=== PATIENT | female | born 1965 | race Caucasian/White ===

== ENCOUNTER 2016-08-28 17:43 | Emergency (ER) | payer OTHER ==
[2016-08-28 17:57] VITALS: BP 150/70
--- NOTE | 2016-08-28 18:06 | UC ---
Throat Pain/Nasal Bayron HPI - HPI Summary HPI Summary: cmoplaint of sore throat that started this morning nasal congestion and sinus pressure for several days intermittent headache denies cough, ear pain denies fever or chills taking claritin, dimetapp without relief - History of Current Complaint Chief Complaint: UCGeneralIllness Stated Complaint: CONGESTION, SORE THROAT Time Seen by Provider: 08/28/16 17:50 Hx Obtained From: Patient Hx Last Menstrual Period: 3-4 weeks ago - Allergies/Home Medications Allergies/Adverse Reactions: Allergies Allergy/AdvReac Type Severity Reaction Status Date / Time Cefaclor [From Ceclor] Allergy Severe Rash Verified 08/28/16 17:57 Penicillins Allergy Severe Rash Verified 08/28/16 17:57 Cefuroxime [From Ceftin] Allergy Intermediate Rash Verified 08/28/16 17:57 Milk-related Compounds Allergy Intermediate cramps Verified 08/28/16 17:57 dairy Allergy GI Upset Uncoded 08/28/16 17:57 peanuts Allergy Difficulty Uncoded 08/28/16 17:57 Breathing/Wheezing Home Medications: Home Medications Loratadine [Claritin] 10 mg PO DAILY 08/28/16 [History Confirmed 08/28/16] PMH/Surg Hx/FS Hx/Imm Hx Previously Healthy: Yes Endocrine History Of: Reports: Thyroid Disease - hypothyroid, Hypothyroidism Denies: Diabetes Cardiovascular History Of: Reports: Hypertension Denies: Cardiac Disorders, Pacemaker/ICD Respiratory History Of: Reports: Asthma Denies: COPD GI/ History Of: Reports: Kidney Stones Denies: Ulcer, Renal Disease Psychological History Of: Reports: Depression Cancer History Of: Denies: Breast Cancer - Surgical History Surgical History: Yes Surgery Procedure, Year, and Place: d&c -2005. uterine ablasion-2008. C- sections 1989 & 2001. D&C 05/12/13 - Family History Known Family History: Positive: Unknown, Hypertension, Diabetes, Other - Colon Cancer Negative: Cardiac Disease - Social History Occupation: Employed Full-time Lives: With Family Alcohol Use: None Substance Use Type: None Smoking Status (MU): Never Smoked Tobacco Have You Smoked in the Last Year: No - Immunization History Most Recent Tetanus Shot: >10 years Review of Systems Constitutional: Negative Skin: Negative Eyes: Negative ENT: Sore Throat, Nasal Discharge Respiratory: Negative Cardiovascular: Negative Gastrointestinal: Negative Genitourinary: Negative Motor: Negative Neurovascular: Negative Musculoskeletal: Negative Neurological: Negative Psychological: Negative All Other Systems Reviewed And Are Negative: Yes Physical Exam Triage Information Reviewed: Yes Appearance: No Pain Distress, Obese Vital Signs: Initial Vital Signs Temp 96.6 F 08/28/16 17:47 Pulse 72 08/28/16 17:47 Resp 16 08/28/16 17:47 BP 150/70 08/28/16 17:47 Pulse Ox 100 08/28/16 17:47 Vital Signs Reviewed: Yes Eyes: Positive: Conjunctiva Clear ENT: Positive: Pharyngeal erythema, Nasal congestion, TMs normal, Tonsillar swelling. Negative: Tonsillar exudate Neck: Positive: No Lymphadenopathy Respiratory: Positive: Lungs clear, Normal breath sounds, No respiratory distress Cardiovascular: Positive: RRR, No Murmur Abdomen Description: Positive: Nontender, Soft Bowel Sounds: Positive: Present Musculoskeletal: Positive: No Edema Neurological: Positive: Alert Psychological Exam: Normal Skin Exam: Normal Throat Pain/Nasal Course/Dx - Differential Dx/Diagnosis Differential Diagnosis/HQI/PQRI: Pharyngitis, Sinusitis, URI Provider Diagnoses: URI, pharyngitis Discharge - Discharge Plan Condition: Stable Disposition: HOME Patient Education Materials: Upper Respiratory Infection (ED), Pharyngitis (ED) Referrals: Jamari Roman MD [Primary Care Provider] - Additional Instructions: Please review your discharge instructions. If your symptoms do not improve please call your primary care provider or return to urgent care. PHARYNGITIS (Sore Throat) What is Pharyngitis? The medical name for a sore throat is Pharyngitis. It is caused by an infection or irritation of your throat or tonsils. The infection can be caused by a virus or by bacteria. Not everyone with Pharyngitis needs antibiotics. Antibiotics will not make viral infections better, and they will not help a sore throat caused by irritation. Symptoms May Include: Sore throat Swelling of the glands in the neck Trouble or pain with swallowing Fever Headache Cough Extreme tiredness Ear pain Treatment Recommendations: Gargle every few hours with a solution of 1/4 teaspoon of salt dissolved in 1/ 2 cup of warm water. Drink plenty of warm beverages, like tea with lemon, (with or without honey) and soup. You may eat and drink cold foods and liquids like frozen yogurt, popsicles, and ice water if that makes your throat feel better. The goal is to keep you well hydrated. Use a "cool-mist" vaporizer or humidifier in the room where you spend most of your time. If you get a sore throat often, consider adding an electronic air filter and humidifier to your furnace system. Don't smoke. Do not eat spicy foods. Take medicine exactly as prescribed. If you do not think it is helping, call your healthcare provider. Do not increase how much or how often you take it without getting their OK first. Non-prescription anti-inflammatory medicine like ibuprofen (Motrin, Advil) or naproxen (Aleve) may help lessen the pain. You should not take these medicines if you have had bleeding in your stomach in the past. Acetaminophen ( Tylenol) is another choice of medicine that may help the pain. If pain medicine that makes you tired or sleepy or contains narcotics is prescribed, you should not drink, drive, or participate in any other activities that you need to be clear-headed for. Please keep all medicines out of the reach of children. Do not get in close contact with anyone you know who has a sore throat. Use throat lozenges (Cepostat, Marathon, etc.) or suck on hard candy for temporary relief of the pain with swallowing. (Do not give to children under age 5.) Call Your Doctor or Return Here IF: Your symptoms do not start to get better within 2 days or you become worse. You have a fever over 101.0 F orally. You cant swallow liquids or saliva. You are drooling. You start to have trouble breathing. You start to have a rash. You start to have a stiff neck. You start to have pain in your chest. You start to have any symptoms that are new or worry you.
== END 2016-08-28 18:22 | disposition home or self-care (01) ==
LOC: UCEAST 17:43
DX: J06.9 Acute upper respiratory infection, unspecified (principal); J02.9 Acute pharyngitis, unspecified; Z88.1 Allergy status to other antibiotic agents; Z88.0 Allergy status to penicillin
CPT/HCPCS: 87651; 99211; G0463

== ENCOUNTER 2017-05-22 08:59 | Emergency (ER) | payer MEDICAID, OTHER ==
[2017-05-22] MEDS ORDERED: Aspirin Low Dose CHEW TAB* 81 MG PO ONE (09:02)
[2017-05-22 09:18] LABS: Hematocrit 41 % (35-47); Hemoglobin 13.3 g/dl (12.0-16.0); Mean Corpuscular HGB Conc 33 g/dl (31-36); Mean Corpuscular Hemoglobin 25 pg (27-31); Mean Corpuscular Volume 77 fL (80-97); Mean Platelet Volume 8 um3 (7.4-10.4); Red Blood Count 5.24 10^6/ul (4.0-5.4); Red Cell Distribution Width 16 % (10.5-15); White Blood Count 10.2 10^3/ul (3.5-10.8)
[2017-05-22 09:32] LABS: ALT 12 U/L (7-52); AST 13 U/L (13-39); Albumin 3.8 g/dL (3.2-5.2); Alkaline Phosphatase 78 U/L (34-104); Anion Gap 8 mmol/L (2-11); BUN/Creatinine Ratio 15.2 (8-20); Blood Urea Nitrogen 10 mg/dL (6-24); CO2 Carbon Dioxide 25 mmol/L (22-32); Calcium 8.9 mg/dL (8.6-10.3); Chloride 102 mmol/L (101-111); Creatine Kinase 64 U/L (10-223); EGFR African American 122.4 (>60); EGFR Non-African American 95.2 (>60); Globulin 2.9 g/dL (2-4); Glucose 139 mg/dL (70-100); Magnesium 1.8 mg/dL (1.9-2.7); Potassium 3.8 mmol/L (3.5-5.0); Sodium 135 mmol/L (133-145); Total Protein 6.7 g/dL (6.4-8.9)
--- NOTE | 2017-05-22 09:44 | RAD ---
HISTORY: Chest pain COMPARISONS: August 12, 2012 VIEWS: 1: frontal portable view of the chest at 9:22 AM FINDINGS: LINES AND TUBES: None. CARDIOMEDIASTINAL SILHOUETTE: The cardiomediastinal silhouette is the upper limits of normal for portable technique. PLEURA: The costophrenic angles are sharp. No pleural abnormalities are noted. LUNG PARENCHYMA: The lungs are clear. ABDOMEN: The upper abdomen is clear. There is no subphrenic gas. BONES AND SOFT TISSUES: No bone or soft tissue abnormalities are noted. IMPRESSION: THE CARDIAC SILHOUETTE IS AT THE UPPER LIMITS OF NORMAL IN SIZE FOR PORTABLE TECHNIQUE.
[2017-05-22 10:19] LABS: TSH (Thyroid Stimulating Horm) 3.74 mcIU/mL (0.34-5.60)
[2017-05-22] MEDS ORDERED: Magnesium Oxide TAB* 400 MG PO ONE (11:19)
[2017-05-22 11:32] LABS: Urine Bacteria 1+ (Absent); Urine Bilirubin Negative (Negative); Urine Glucose Negative (Negative); Urine Nitrite Negative (Negative)
[2017-05-22 12:06] VITALS: BP 106/39
--- NOTE | 2017-05-23 08:09 | ED ---
Brianna Miranda Alfonso, scribed for Andre Barron MD on 05/22/17 at 0937 . HPI Chest Pain - HPI Summary HPI Summary: This patient is a 51 year old F BIBA to [facility] accompanied by female with a chief complaint of diffuse CP since 729 today. The CP radiates to her left arm (numbness). The patient rates the pain 1/10 in severity. Symptoms aggravated by nothing. Symptoms alleviated by nothing. Patient reports palpitations, anxiety, tachypnea, nausea, diaphoresis (hands and back of hands), and SOB. Patient denies vomiting. - History of Current Complaint Chief Complaint: EDChestPainROMI Time Seen by Provider: 05/22/17 09:01 Hx Obtained From: Patient Onset/Duration: Started Hours Ago - 729 today, Still Present Timing: Constant Current Severity: Mild Pain Intensity: 1 Pain Scale Used: 0-10 Numeric Chest Pain Location: Diffuse Chest Pain Radiates: Yes Chest Pain Radiates To:: Arm - left Aggravating Factor(s): Nothing Alleviating Factor(s): Nothing Associated Signs and Symptoms: Positive: Other: - Patient reports palpitations, anxiety, tachypnea, nausea, diaphoresis (hands and back of hands), and SOB. Patient denies vomiting. - Allergy/Home Medications Allergies/Adverse Reactions: Allergies Allergy/AdvReac Type Severity Reaction Status Date / Time Cefaclor [From Ceclor] Allergy Severe Rash Verified 05/22/17 09:39 Penicillins Allergy Severe Rash Verified 05/22/17 09:39 Cefuroxime [From Ceftin] Allergy Intermediate Rash Verified 05/22/17 09:39 Milk-related Compounds Allergy Intermediate cramps Verified 05/22/17 09:39 dairy Allergy GI Upset Uncoded 05/22/17 09:39 peanuts Allergy Difficulty Uncoded 05/22/17 09:39 Breathing/Wheezing PMH/Surg Hx/FS Hx/Imm Hx Endocrine/Hematology History: Reports: Hx Thyroid Disease - hypothyroid Denies: Hx Diabetes Cardiovascular History: Reports: Hx Hypercholesterolemia, Hx Hypertension Denies: Hx Pacemaker/ICD Respiratory History: Reports: Hx Asthma Denies: Hx Chronic Obstructive Pulmonary Disease (COPD) GI History: Denies: Hx Ulcer History: Reports: Hx Kidney Stones Denies: Hx Renal Disease Sensory History: Reports: Hx Contacts or Glasses Denies: Hx Hearing Aid Opthamlomology History: Reports: Hx Contacts or Glasses Psychiatric History: Reports: Hx Depression, Hx Panic Disorder - ANXIETY - Cancer History Hx Chemotherapy: No Hx Radiation Therapy: No - Surgical History Surgery Procedure, Year, and Place: d&c -2005. uterine ablasion-2008. C- sections 1989 & 2001. D&C 05/12/13 Infectious Disease History: No Infectious Disease History: Denies: Hx Clostridium Difficile, Hx Hepatitis, Hx Human Immunodeficiency Virus (HIV), Hx of Known/Suspected MRSA, Hx Shingles, Hx Tuberculosis, Hx Known/ Suspected VRE, Hx Known/Suspected VRSA, History Other Infectious Disease, Traveled Outside the [place] in Last 30 Days - Family History Known Family History: Positive: Hypertension, Diabetes, Other - Colon Cancer Negative: Cardiac Disease - Social History Alcohol Use: None Substance Use Type: Reports: None Hx Tobacco Use: No Smoking Status (MU): Never Smoked Tobacco Have You Smoked in the Last Year: No Review of Systems Positive: Skin Diaphoresis Positive: Palpitations, Chest Pain Positive: Shortness Of Breath, Other - tachypnea Positive: Nausea. Negative: Vomiting Positive: Anxious All Other Systems Reviewed And Are Negative: Yes Physical Exam - Summary Physical Exam Summary: VITAL SIGNS: Reviewed. GENERAL: Patient is a well-developed and obese female who is lying comfortable in the stretcher. Patient is not in any acute respiratory distress. HEAD AND FACE: No signs of trauma. No ecchymosis, hematomas or skull depressions. No sinus tenderness. EYES: PERRLA, EOMI x 2, No injected conjunctiva, no nystagmus. EARS: Hearing grossly intact. Ear canals and tympanic membranes are within normal limits. MOUTH: Oropharynx within normal limits. NECK: Supple, trachea is midline, no adenopathy, no JVD, no carotid bruit, no c- spine tenderness, neck with full ROM. CHEST: Symmetric, no tenderness at palpation LUNGS: Clear to auscultation bilaterally. No wheezing or crackles. CVS: Regular rate and rhythm, S1 and S2 present, no murmurs or gallops appreciated. ABDOMEN: Soft, non-tender. No signs of distention. No rebound no guarding, and no masses palpated. Bowel sounds are normal. EXTREMITIES: FROM in all major joints, no edema, no cyanosis or clubbing. NEURO: Alert and oriented x 3. No acute neurological deficits. Speech is normal and follows commands. SKIN: Dry and warm Triage Information Reviewed: Yes Vital Signs On Initial Exam: Initial Vitals Temp Pulse Resp BP Pulse Ox 97.7 F 70 16 133/58 97 05/22/17 09:10 05/22/17 09:10 05/22/17 09:10 05/22/17 09:10 05/22/17 09:10 Vital Signs Reviewed: Yes Diagnostics - Vital Signs Vital Signs Temp Pulse Resp BP Pulse Ox 05/22/17 09:10 97.7 F 70 16 133/58 97 - Laboratory Lab Results: Lab Results 05/22/17 05/22/17 05/22/17 Range/Units 09:09 09:09 09:09 WBC 10.2 (3.5-10.8) 10^3/ul RBC 5.24 (4.0-5.4) 10^6/ul Hgb 13.3 (12.0-16.0) g/dl Hct 41 (35-47) % MCV 77 L (80-97) fL MCH 25 L (27-31) pg MCHC 33 (31-36) g/dl RDW 16 H (10.5-15) % Plt Count 241 (150-450) 10^3/ul MPV 8 (7.4-10.4) um3 Neut % (Auto) 70.0 (38-83) % Lymph % (Auto) 21.3 L (25-47) % [place] % (Auto) 6.3 (1-9) % Eos % (Auto) 1.3 (0-6) % Baso % (Auto) 1.1 (0-2) % Absolute Neuts (auto) 7.1 (1.5-7.7) 10^3/ul Absolute Lymphs (auto) 2.2 (1.0-4.8) 10^3/ul Absolute Monos (auto) 0.6 (0-0.8) 10^3/ul Absolute Eos (auto) 0.1 (0-0.6) 10^3/ul Absolute Basos (auto) 0.1 (0-0.2) 10^3/ul Absolute Nucleated RBC 0.01 10^3/ul Nucleated RBC % 0.1 Sodium 135 (133-145) mmol/L Potassium 3.8 (3.5-5.0) mmol/L Chloride 102 (101-111) mmol/L Carbon Dioxide 25 (22-32) mmol/L Anion Gap 8 (2-11) mmol/L BUN 10 (6-24) mg/dL Creatinine 0.66 (0.51-0.95) mg/dL Est GFR ( Amer) 122.4 (>60) Est GFR (Non-Af Amer) 95.2 (>60) BUN/Creatinine Ratio 15.2 (8-20) Glucose 139 H (70-100) mg/dL Lactic Acid 2.1 H* (0.5-2.0) mmol/L Calcium 8.9 (8.6-10.3) mg/dL Magnesium 1.8 L (1.9-2.7) mg/dL Total Bilirubin 0.40 (0.2-1.0) mg/dL AST 13 (13-39) U/L ALT 12 (7-52) U/L Alkaline Phosphatase 78 (34-104) U/L Total Creatine Kinase 64 (10-223) U/L CK-MB (CK-2) Pending Troponin I Pending Total Protein 6.7 (6.4-8.9) g/dL Albumin 3.8 (3.2-5.2) g/dL Globulin 2.9 (2-4) g/dL Albumin/Globulin Ratio 1.3 (1-3) TSH Pending Beta HCG, Quant Pending Result Diagrams: 05/22/17 09:09 05/22/17 09:09 Lab Statement: Any lab studies that have been ordered have been reviewed, and results considered in the medical decision making process. - Radiology CXR Radiology Interpretation Completed By: Radiologist - THE CARDIAC SILHOUETTE IS AT THE UPPER LIMITS OF NORMAL IN SIZE FOR PORTABLE TECHNIQUE. ED physician has reviewed this radiology report and agrees. - EKG 916 Cardiac Rate: NL - BPM 67 EKG Rhythm: Sinus Rhythm EKG Interpretation: No ST elevation Chest Pain Course/Dx - Course Assessment/Plan: This patient is a 51 year old F BIBA to [facility] accompanied by female with a chief complaint of diffuse CP since 0730 today. The CP radiates to her left arm (numbness). The patient rates the pain 1/10 in severity. Symptoms aggravated by nothing. Symptoms alleviated by nothing. Patient reports palpitations, anxiety, tachypnea, nausea, diaphoresis (hands and back of hands) , and SOB. Patient denies vomiting. Test results with no significant abnormalities except for glucose of 139, lactic acid of 2.1, and magnesium of 1.8. First troponin 0.00 and second troponin 4 hours later is also 0.00. Urinalysis contaminated therefore cultures will be sent. An EKG reveals NSR. CXR reveals THE CARDIAC SILHOUETTE IS AT THE UPPER LIMITS OF NORMAL IN SIZE FOR PORTABLE TECHNIQUE. ED physician has reviewed this radiology report and agrees. Therefore I believe the patient has musculoskeletal pain. I do not believe the patient has CAD. The patient is not hypoxic or tachycardic therefore I have low suspicion for PE. The patient is hemodynamically stable and alert and oriented x3. - Chest Pain Differential Diagnosis/HQI/PQRI: Acute VA, ACS, Angina, CHF, Chest Wall, GI Disease, Lower Respiratory Infection - Diagnoses Provider Diagnoses: Chest pain, atypical Discharge - Discharge Plan Condition: Stable Disposition: HOME Patient Education Materials: Chest Pain (ED) Referrals: Jamari Roman MD [Primary Care Provider] - 3 Days Additional Instructions: RETURN TO THE EMERGENCY DEPARTMENT FOR CHANGING OR WORSENING SYMPTOMS. The documentation as recorded by the Brianna munroe Alfonso accurately reflects the service I personally performed and the decisions made by , Andre Barron MD.
--- NOTE | 2017-05-24 09:18 | PN ---
Progress Note - Progress Note Date of Service: 05/22/17 Note: preliminary urine culture results grew 10-25,000 group B. not complaining of symptoms and not sufficient enough for any treatment. no further action required at this time.
== END 2017-05-22 13:08 | disposition home or self-care (01) ==
LOC: ED 08:59
DX: R07.89 Other chest pain (principal); R00.2 Palpitations; R06.02 Shortness of breath; R11.0 Nausea; F41.9 Anxiety disorder, unspecified
CPT/HCPCS: 36415; 71010; 80053; 81003; 81015; 82550; 82553; 83605; 83735; 84443; 84484; 84702; 85025; 87077; 87086; 93005; 99282

== ENCOUNTER 2017-09-16 11:46 | Emergency (ER) | payer OTHER ==
[2017-09-16 13:09] VITALS: BP 150/77
--- NOTE | 2017-09-16 13:37 | UC ---
Allergic Reaction HPI - HPI Summary HPI Summary: Pt presents with recent history of swelling to face and lips. She tells me that her daughter is autistic and will occasionally make food for her to eat for fun. Mom tried a hamburger with A1 sauce, BBQ sauce, and cottage cheese - about 15-20 minutes later she developed facial swelling and a red rash on her face. She took two benadryl and came to urgent care. She has had all these food items in the past without difficulty and is unsure what caused this reaction. At the time of this interview, she tells me that swelling and rash are almost completely gone. Denies headache, dizziness, SOB, throat swelling, palpitations , or chest pain. - History of Current Complaint Chief Complaint: UCRasjob Stated Complaint: ALLERGIC REACTION RASH Time Seen by Provider: 09/16/17 13:32 Hx Obtained From: Patient Hx Last Menstrual Period: 08/21/17 Onset/Duration: Sudden Onset Severity Initially: Mild Severity Currently: Mild Pain Intensity: 2 Pain Scale Used: 0-10 Numeric Character: Swelling - Allergies/Home Medications Allergies/Adverse Reactions: Allergies Allergy/AdvReac Type Severity Reaction Status Date / Time MS Cefaclor [From Ceclor] Allergy Severe Rash Verified 05/22/17 09:39 MS Penicillins [Penicillins] Allergy Severe Rash Verified 05/22/17 09:39 MS Cefuroxime [From Ceftin] Allergy Intermediate Rash Verified 05/22/17 09:39 MS Milk-related Compounds Allergy Intermediate cramps Verified 05/22/17 09:39 [Milk-related Compounds] peanuts Allergy Severe Difficulty Uncoded 09/16/17 13:10 Breathing/Wheezing dairy Allergy GI Upset Uncoded 05/22/17 09:39 Home Medications: Home Medications Multivitamin [Multiple Vitamins] 1 tab PO DAILY 09/16/17 [History Confirmed 01/26] diphenhydrAMINE HCl [Benadryl Allergy 25 MG CAP] 50 mg PO DAILY PRN 09/16/17 [ History Confirmed 09/16/17] PMH/Surg Hx/FS Hx/Imm Hx Previously Healthy: Yes Endocrine History: Hypothyroidism Psychological History: Anxiety, Depression - Surgical History Surgical History: Yes Surgery Procedure, Year, and Place: d&c -2005. uterine ablasion-2008. C- sections 1989 & 2001. D&C 05/12/13 - Family History Known Family History: Positive: Unknown, Hypertension, Diabetes, Other - Colon Cancer Negative: Cardiac Disease - Social History Occupation: Employed Full-time Lives: With Family Alcohol Use: None Substance Use Type: None Smoking Status (MU): Never Smoked Tobacco Have You Smoked in the Last Year: No - Immunization History Most Recent Tetanus Shot: >10 years Review of Systems Constitutional: Negative Skin: Rash, Other - Facial swelling Eyes: Negative ENT: Negative Respiratory: Negative Cardiovascular: Negative Gastrointestinal: Negative Neurovascular: Negative Musculoskeletal: Negative Neurological: Negative Psychological: Negative All Other Systems Reviewed And Are Negative: Yes Physical Exam Triage Information Reviewed: Yes Appearance: Well-Appearing, No Pain Distress, Obese, Other: - Sitting on exam table. NAD. breathing comfortably Vital Signs: Initial Vital Signs Temp 98.1 F 09/16/17 13:04 Pulse 84 09/16/17 13:04 Resp 20 09/16/17 13:04 BP 150/77 09/16/17 13:04 Pulse Ox 99 09/16/17 13:04 Vital Signs Reviewed: Yes Eyes: Positive: Conjunctiva Clear, Other: - EOMI. PERRLA. No lid swelling or perioribital edema. Negative: Conjunctiva Inflamed, Discharge ENT: Positive: Hearing grossly normal, Pharynx normal, TMs normal, Uvula midline , Other - No neck or throat edema.. Negative: Pharyngeal erythema, Nasal congestion, Nasal drainage, TM bulging, TM dull, TM red, Tonsillar swelling, Tonsillar exudate, Muffled voice, Hoarse voice, Sinus tenderness Neck: Positive: Supple, Nontender, No Lymphadenopathy, Other: - FROM. No edema Respiratory: Positive: Chest non-tender, Lungs clear, Normal breath sounds, No respiratory distress, No accessory muscle use Cardiovascular: Positive: RRR, No Murmur, Pulses Normal, Brisk Capillary Refill Neurological: Positive: Alert, Other: - CN II-XII grossly intact Psychological: Positive: Age Appropriate Behavior Skin: Positive: Other - No appreciable edema or rashes on face.. Negative: rashes, significant lesion(s) Allergic Reaction Course/Dx - Course Course Of Treatment: Allergic reaction to food item - resolved. Will place her on prednisone for 5 days to insure reaction resolution. Report to ED if symptoms return. - Differential Dx/Diagnosis Provider Diagnoses: Allergic reaction to food item. Discharge - Discharge Plan Condition: Stable Disposition: HOME Prescriptions: predniSONE TAB* [Deltasone TAB*] 40 mg PO DAILY #10 tab Patient Education Materials: General Allergic Reaction (ED) Referrals: Jamari Roman MD [Primary Care Provider] - Additional Instructions: If you develop a fever, shortness of breath, chest pain, new or worsening symptoms - please call your PCP or go to the ED. Your blood pressure was high at todays visit. Please see your primary provider within 4 weeks for recheck and re-evaluation. 1) If your symptoms return or if you develop any fever, swelling, shortness of breath, or chest pain - please call 911 and go to the ER.
== END 2017-09-16 14:23 | disposition home or self-care (01) ==
LOC: UCEAST 11:46
DX: T78.1XXA Other adverse food reactions, not elsewhere classified, initial encounter (principal); L27.2 Dermatitis due to ingested food; R22.0 Localized swelling, mass and lump, head; E03.9 Hypothyroidism, unspecified; F41.9 Anxiety disorder, unspecified; F32.9 Major depressive disorder, single episode, unspecified; E66.9 Obesity, unspecified; Z88.0 Allergy status to penicillin; Z88.1 Allergy status to other antibiotic agents; Z91.011 Allergy to milk products; Z91.010 Allergy to peanuts
CPT/HCPCS: 99212; G0463

== ENCOUNTER 2017-10-08 11:46 | Emergency (ER) | payer OTHER ==
--- OUTSIDE RECORDS SUMMARY | 2017-10-08 11:53 | XMS REPORT ---
:1965 Author Organization [facility] OBN Address [address] [place] [address] Care Team Providers Name Role Phone Caty Diehl Unavailable Unavailable PROBLEMS Type Condition ICD9-CM Code [id number] Code Onset Condition SNOMED Code Dates Status Problem Morbid (severe) E66.01 Active 041819819 obesity due to excess calories Problem Elevated R03.0 Active 607942739 blood-pressure reading, without diagnosis of hypertension Problem Leiomyoma of D25.9 Active [id number] uterus, unspecified Problem Irregular N92.6 Active 25684713 menstruation, unspecified Problem Family history of Z80.0 Active [id number] malignant neoplasm of digestive organs ALLERGIES Substance Reaction Event Type Date Status Dairy hives Drug Allergy Sep, Active penicillin hives Drug Allergy Sep, Active Ceclor hives Drug Allergy Sep, Active Ceftin hives Drug Allergy Sep, Active ENCOUNTERS Encounter Location Date Diagnosis [facility] [address] December, [place] [id number] [facility] [address] December, [place] [id number] [address] Oct, [address] [place], [place] [id number] [address] Sep, Encounter for gynecological [facility] [address] [facility] (general) [place] [id number] (routine) with abnormal findings Z01.411 ; Leiomyoma of uterus, unspecified D25.9 ; Irregular menstruation, unspecified N92.6 ; Encounter for other screening for malignant neoplasm of breast Z12.39 ; Morbid (severe) obesity due to excess calories E66.01 and Elevated blood-pressure reading, without diagnosis of hypertension R03.[address] Jul, Leiomyoma of uterus, [address] [place], unspecified D25.9 and [place] [id number] Irregular menstruation, unspecified N92.6 [facility] 103 Jul, Leiomyoma of uterus, [facility] unspecified D25.9 and [place], [place] [id number] Irregular menstruation, unspecified N92.6 [facility] [facility] 103 Jan, OBGYN [facility] [place] [id number] [facility] [facility] 103 Jan, Excessive and frequent [facility] with regular [place], [place] [id number] cycle N92.0 ; Irregular menstruation, unspecified N92.6 and Leiomyoma of uterus, unspecified D25.9 [facility] 103 Jan, Excessive and frequent OBGYN [facility] menstruation with regular [place], [place] [id number] cycle N92.0 ; Irregular menstruation, unspecified N92.6 and Leiomyoma of uterus, unspecified D25.[address] December, Irregular menstruation , O[address] [place] [address], unspecified N92.6 [place] [id number] [address] Sep, Encounter for gynecological [facility] Road [address] [place] [address], examination (general) [place] [id number] (routine) without abnormal findings Z01.419 ; Encounter for screening mammogram for malignant neoplasm of breast Z12.31 ; Body mass index (BMI) 45.0-49.9, adult Z68.42 and Family history of malignant neoplasm of digestive organs Z80.[address] May, OBN [address] [place] [id number] May, Encounter for gynecological [facility] Road [address] [place] [address], examination (general) [place] [id number] (routine) without abnormal findings Z01.419 ; Encounter for screening mammogram for malignant neoplasm of breast Z12.31 ; Leiomyoma of uterus, unspecified D25.9 and Body mass index (BMI) 45.0-49.9, adult Z68.42 [facility] [address] [facility] 09 May, 2015 Encounter for screening [address] [place], mammogram for malignant [place] [id number] neoplasm of breast Z12.31 ; Excessive and frequent menstruation with regular cycle N92.0 ; Leiomyoma of uterus, unspecified D25.9 ; Body mass index (BMI) 45.0-49.9, adult Z68.42 and Encounter for gynecological examination (general) (routine) with abnormal findings Z01.411 [facility] [facility] 103 Feb, FM HX OVARY MALIGNANCY OBGYN [facility] V16.41 ; FM HX GENITAL [place], [place] [id number] MALIG NEC V16.49 ; Menometrorrhagia 626.2 and VULVAR LESION 624.9 [place] [facility] 103 Feb, [facility] FIB[facility]IDS- U[facility]PEC [facility] 218.9 [place], [place] [id number] [facility] Feb, OBGYN [place] [id number] [facility] [address] [facility] Feb, [address] [place] [id number] [place] [facility] 103 Feb, OBGYN [place] [id number] [facility] [address] [place] [facility] Jan, VULVAR LESION [address] [place], [place] [id number] [place] [facility] 103 Jan, FM HX OVARY MALIGNANCY OBN [facility] V16.41 ; FM HX GENITAL [place], [place] [id number] MALIG NEC V16.49 ; Menometrorrhagia 626.2 and VULVAR LESION 624.9 [facility] [facility] 103 Jan, FM HX OVARY MALIGNANCY OBGYN [facility] V16.41 ; FM HX GENITAL [place], [place] [id number] MALIG NEC V16.49 and Menometrorrhagia 626.2 [facility] [facility] 103 Jan, FM HX OVARY MALIGNANCY [facility] V16.41 ; FM HX GENITAL [place], [place] [id number] MALIG NEC V16.49 and Menometrorrhagia 626.[address] Nov, ROUTINE KAIAKO KOHANGA REO EXAMINATION [facility] Road [address] [place] [address], V72.31 and PAP SMEAR W/O [place] [id number] KAIAKO KOHANGA REO EXAM V76.2 [facility] 103 Sep, [place] [id number] [address] Sep, Menorrhagia 626.2 ; OBGYN [address] [place] [address], Endometrial polyp 621.0 ; [place] [id number] FM HX OVARY MALIGNANCY V16.41 ; FM HX GENITAL MALIG NEC V16.49 and SCREEN MAMMOGRAM NEC V76.[address] Sep, OBGYN [address] [place] [id number] Jun, Menorrhagia 626.2 ; OBGYN [address] [place] [address], Endometrial polyp 621.0 ; [place] [id number] FM HX OVARY MALIGNANCY V16.41 ; FM HX GENITAL MALIG NEC V16.49 and Body Mass Index 45.0-49.9, adult V85.42 [facility] [address] [place], May, Medical [place] [id number] [address] May, Menorrhagia 626.2 ; [address]BGYN [address] [place] [address], Endometrial polyp 621.0 ; [place] [id number] FM HX OVARY MALIGNANCY V16.41 and FM HX GENITAL MALIG NEC V16.49 [facility] 103 Mar, [place] [id number] [address] Mar, Menorrhagia 626.2 ; OBGYN [address] [place], Endometrial polyp 621.0 ; [place] [id number] FM HX OVARY MALIGNANCY V16.41 and FM HX GENITAL MALIG NEC V16.[address] Mar, OBGYN [address] [place], [place] [id number] [facility] [facility] 103 December, [place] [id number] [facility] [facility] 103 Nov, [place] [id number] [place] [facility] [address] [place] [address] [facility] Nov, Menorrhagia 626.2 ; [address] [place], Endometrial polyp 621.0 ; [place] [id number] FM HX OVARY MALIGNANCY V16.41 and FM HX GENITAL MALIG NEC V16.49 [facility] [facility] 103 Nov, [place] [id number] [facility] [facility] 103 Nov, [place] [id number] [facility] [facility] 103 Nov, [place] [id number] [place] [facility] [address] [place] [address] [facility] Nov, Menorrhagia [address] [place] [id number] [facility] [facility] 103 Nov, Menorrhagia 626.2 [place] [id number] [facility] 103 Nov, Menorrhagia 626.2 ; FM HX [facility] OVARY MALIGNANCY V16.41 and [place], [place] [id number] Endometrial polyp 621.0 [facility] [facility] 103 Jun, [place], [place] [id number] [facility] [address] [place] [address] Tri[facility]amm Jun, UTERINE FIBROIDS- UNSPEC OBGYN [address] [place], 218.9 ; FM HX OVARY [place] [id number] MALIGNANCY V16.41 ; FM HX GENITAL MALIG NOS V16.40 and Menorrhagia 626.2 [facility] [facility] 103 Jun, [place], [place] [id number] [facility] [facility] 103 Jun, OBGYN [place] [id number] [facility] 103 Jun, OBGYN [place] [id number] [facility] [facility] 103 Jun, OBGYN [place] [id number] [place] [facility] 103 May, UTERINE FIBROIDS- UNSPEC OBGYN [facility] 218.9 ; FM HX OVARY [place], [place] [id number] MALIGNANCY V16.41 and FM HX GENITAL MALIG NOS V16.40 [place] [facility] 103 May, Enlarged uterus 621.2 and OBGYN [facility] UTERINE FIBROIDS-UNSPEC [place], [place] [id number] 218.9 [facility] 103 Apr, OBGYN [place] [id number] [place] [facility] 103 Apr, UTERINE FIBROIDS- UNSPEC [facility] 218.9 [place], [place] [id number] [place] [facility] 103 Mar, OBN [place], [place] [id number] IMMUNIZATIONS No Known Immunizations SOCIAL HISTORY Never Assessed REASON FOR REFERRAL FUNCTIONAL STATUS PLAN OF CARE Activity Details Follow Up Lab slip. 2 week nursing appointment to recheck BP. Pelvic US and f/ u in 3 months. Mammo referral. 1 year annual. Reason: Pending Test Mammogram, Routine Screening - bilateral VITAL SIGNS Height 64.5 in 2017-10-01 Weight 282 lbs 2017-10-01 BMI 47.65 kg/m2 2017-10-01 Blood pressure systolic 162 mm Hg 2017-10-01 Blood pressure diastolic 84 mm Hg 2017-10-01 MEDICATIONS Medication Instructions Dosage Frequency Start Date End Date Duration Status Zoloft 100 mg orally qd 1 tab 24h Active Vitamin D2 1 tab Active 5000iu Vinton 3 1 tab 24h Active cranberry Plus 1 tab 24h Active 8400 niacin 500 mg orally once daily 1 tab(s) 24h Active Klonopin 0.5 mg orally PRN 1 tab(s) Active Synthroid 1 tab 24h Active 125mcg PROCEDURES Procedure Date Ordered Result Body Site URINE TEST Oct 01, 2017 RESULTS Name Result Date Reference Range URINE TEST REASON FOR VISIT Annual , schedule repeat pelvic US and f/u, She had labs done 07/30/17. Missing results. - Lab states they did not have order for other labs that were ordered, if menses late, UPT MEDICAL (GENERAL) HISTORY Type Description Date Medical History anemia before EM ablation Medical History hypothyriodism Medical History fibriods Medical History migraines w/ visual aura Medical History BRCA neg Medical History Colaris neg Medical History px arthritis in left knee Surgical History Hysteroscopy/D&C (Dr. Burciaga) 09-29-09 Surgical History 05-26-06 Hysteroscopy/D&C/Thermachoice EM 05-26-06 ablation (Dr. Burciaga) Surgical History C/S x 2 Surgical History Hysteroscopy/D&C/polypectomy 05-18-13 Hospitalization History childbirth
[2017-10-08 12:07] VITALS: BP 151/79
[2017-10-08] MEDS ORDERED: Ondansetron ODT TAB* 4 MG PO ONE (12:24)
--- NOTE | 2017-10-08 12:39 | UC ---
Giorgi Miranda Julia, scribed for Sumi Hoang MD on 10/08/17 at 1238 . Abdominal Pain Female HPI - HPI Summary HPI Summary: This patient is a 51 year old F presenting to [facility] with a chief complaint of cramping abdominal pain and intermittent diarrhea with nausea for the past two days .Patient reports headache. Patient denies urinary symptoms, fever, chills, vomiting, and bloody or black stool. The patient rates the pain 5 /10 in severity. She last urinated at 7:00am today. no blood or black stook. abd cramping prior to BM + sick contact with similar. No fever, chills, rash. No cp, sob. No dysuria, hematuria, vaginal discharge odor. Medications reviewed this visit. - History of Current Complaint Chief Complaint: UCAbdominalPain Stated Complaint: DIARRHEA BACK/ABD PAIN NAUSEA Time Seen by Provider: 10/08/17 12:12 Hx Obtained From: Patient Hx Last Menstrual Period: 08/17/17 Onset/Duration: Lasting Days, Still Present Pain Intensity: 5 Pain Scale Used: 0-10 Numeric Location: Diffuse Character: Cramping Aggravating Factor(s): Other: - diarrhea Alleviating Factor(s): Nothing Associated Signs and Symptoms: Positive: Nausea, Diarrhea. Negative: Fever, Blood in Stool, Urinary Symptoms, Vomiting Allergies/Adverse Reactions: Allergies Allergy/AdvReac Type Severity Reaction Status Date / Time cefaclor [From Ceclor] Allergy Rash Verified 10/08/17 12:11 cefuroxime [From Ceftin] Allergy Rash Verified 10/08/17 12:12 lactose Allergy GI Upset Verified 10/08/17 12:12 peanut Allergy anaph Verified 10/08/17 12:10 Penicillins Allergy Rash Verified 10/08/17 12:11 PMH/Surg Hx/FS Hx/Imm Hx Previously Healthy: Yes Endocrine History: Hypothyroidism Psychological History: Anxiety, Depression - Surgical History Surgical History: Yes Surgery Procedure, Year, and Place: d&c -2005. uterine ablasion-2008. C- sections 1989 & 2001. D&C 05/12/13 - Family History Known Family History: Positive: Hypertension - mother, Diabetes, Other - Colon Cancer - father Negative: Cardiac Disease - Social History Occupation: Employed Part-time Lives: With Family - single mom 2 children Alcohol Use: None Substance Use Type: None Smoking Status (MU): Never Smoked Tobacco Have You Smoked in the Last Year: No - Immunization History Most Recent Tetanus Shot: >10 years Review of Systems Constitutional: Negative - fever and chills, Fatigue Gastrointestinal: Negative - vomiting, bloody or black stools, Abdominal Pain, Diarrhea, Nausea Genitourinary: Negative - urinary symptoms All Other Systems Reviewed And Are Negative: Yes Physical Exam Triage Information Reviewed: Yes Appearance: Well-Appearing, No Pain Distress, Well-Nourished Vital Signs: Initial Vital Signs Temp 97.7 F 10/08/17 12:04 Pulse 69 10/08/17 12:04 Resp 18 10/08/17 12:04 BP 151/79 10/08/17 12:04 Pulse Ox 99 10/08/17 12:04 Vital Signs Reviewed: Yes Eyes: Positive: Conjunctiva Clear ENT Exam: Normal ENT: Positive: Normal ENT inspection, Pharynx normal, TMs normal, Other - lips pasty mmmoist Dental Exam: Normal Neck exam: Normal Neck: Positive: Supple, Nontender, No Lymphadenopathy Respiratory Exam: Normal Respiratory: Positive: Chest non-tender, Lungs clear, Normal breath sounds, No respiratory distress, No accessory muscle use Cardiovascular Exam: Normal Cardiovascular: Positive: RRR, No Murmur Abdominal Exam: Normal Abdomen Description: Positive: Nontender, No Organomegaly, Soft Bowel Sounds: Positive: Present Musculoskeletal Exam: Normal Musculoskeletal: Positive: Strength Intact Neurological Exam: Normal Neurological: Positive: Alert Psychological Exam: Normal Skin Exam: Normal Re-Evaluation - Re-Evaluation 1 Re-Evaluation Time: 12:53 Change: Improved - Patient's nausea improved with Zofran. She drank an entire water bottle. reviewed urine leuk with pt no sx will culture hold tx pt comfortable and in agreement with plan Abd Pain Female Course/Dx - Course Course Of Treatment: Pt with 2 days intermittent n/v/d pt with abd cramping. pt well appearing, non concerning exam, no abd pain. Will trial Rx zofran. urine. po trial - Differential Dx/Diagnosis Provider Diagnoses: n/v/d Discharge - Discharge Plan Condition: Stable Disposition: HOME Prescriptions: Ondansetron ODT TAB* [Zofran 4 MG Odt TAB*] 4 mg PO Q8H PRN #10 tab.odt PRN Reason: Nausea Patient Education Materials: Acute Nausea and Vomiting (ED), Acute Diarrhea (ED ) Referrals: Jamari Roman MD [Primary Care Provider] - Additional Instructions: - Your urine has been sent for additional testing. If you need antibiotics, you will receive a call from a care teamcenter solution architect - For the first 6 hours, eat and drink clears (water, reymundo migel, soup broth, jello, popsicles, Gatorade). If you tolerate this okay, add bland foods such as dry toast, scrambled eggs, crackers. Wait until you are feeling better for 24 hours before eating spicy food, acidic food, tomato based food, fried food. - Okay to take nausea medication as prescribed - If you develop fevers, uncontrolled vomiting or diarrhea, increased abdominal pain or any other questions or concerns, it is recommended you go to the emergency department for follow-up The documentation as recorded by the Giorgi munroe Julia accurately reflects the service I personally performed and the decisions made by me, Sumi Hoang MD.
== END 2017-10-08 13:11 | disposition home or self-care (01) ==
LOC: UCEAST 11:46
DX: R19.7 Diarrhea, unspecified (principal); R11.0 Nausea; R10.30 Lower abdominal pain, unspecified; R51 Headache; E03.9 Hypothyroidism, unspecified; F41.9 Anxiety disorder, unspecified; F32.9 Major depressive disorder, single episode, unspecified; Z88.1 Allergy status to other antibiotic agents; Z91.010 Allergy to peanuts; Z88.0 Allergy status to penicillin; Z91.018 Allergy to other foods
CPT/HCPCS: 81003; 87086; 99212; A9270-GY; G0463

== ENCOUNTER 2017-10-22 11:51 | Emergency (ER) | payer OTHER ==
[2017-10-22 12:00] VITALS: BP 173/88
[2017-10-22] MEDS ORDERED: Ondansetron ODT TAB* 4 MG PO ONE (12:31)
--- NOTE | 2017-10-22 12:33 | UC ---
Cheo Miranda Jennifer, scribed for Sumi Hoang MD on 10/22/17 at 1232 . General HPI - HPI Summary HPI Summary: The patient is a 51 year old female who presents with body aches and abdominal pain in the past couple of days. She reports she woke up this morning and everything hurt. She complains of chills, nausea, diarrhea, and occasional abdominal cramps before diarrhea. She explains that when she gets cramps or has gas or bloating, it affects her urination and causes the diarrhea. The patient denies fevers and blood in the stools. Pt with similar sx 3 weeks ago - had improved. Pt was exposed to + flu on Sat and is concerned she contracted. No analgesia taken today . + po water. Pt has zofran from previous, but not using . No cp, sob. Pt had yogurt this morning which "ran right through her." The patient adds that her mom and brother had the flu, so she wanted to make sure she didnt have the flu today. Patients medications reviewed this visit. - History of Current Complaint Chief Complaint: UCGeneralIllness Stated Complaint: NAUSEA,BODYACHE Time Seen by Provider: 10/22/17 12:01 Hx Obtained From: Patient Hx Last Menstrual Period: 08/17/17 Onset/Duration: Sudden Onset, Lasting Days - couple days, Still Present, Worse Since - This morning Timing: Constant Onset Severity: Moderate Current Severity: Moderate Pain Intensity: 4 Associated Signs & Symptoms: Positive: Other - Body aches, abdominal pain, chills, nausea, diarrhea, problems with urination when she gets gas or bloating. NEGATIVE: fever, blood in stool - Allergy/Home Medications Allergies/Adverse Reactions: Allergies Allergy/AdvReac Type Severity Reaction Status Date / Time cefaclor [From Ceclor] Allergy Rash Verified 10/08/17 12:11 cefuroxime [From Ceftin] Allergy Rash Verified 10/08/17 12:12 lactose Allergy GI Upset Verified 10/08/17 12:12 peanut Allergy anaph Verified 10/08/17 12:10 Penicillins Allergy Rash Verified 10/08/17 12:11 PMH/Surg Hx/FS Hx/Imm Hx Endocrine History: Hypothyroidism Respiratory History: Asthma - Surgical History Surgical History: Yes Surgery Procedure, Year, and Place: d&c -2005. uterine ablasion-2008. C- sections 1989 & 2001. D&C 05/12/13 - Family History Known Family History: Positive: Unknown, Hypertension - mother, Diabetes, Other - Colon Cancer - father; Breast CA - great aunt Negative: Cardiac Disease - Social History Occupation: Employed Part-time Lives: With Family Alcohol Use: None Substance Use Type: None Smoking Status (MU): Never Smoked Tobacco Have You Smoked in the Last Year: No - Immunization History Most Recent Tetanus Shot: >10 years Review of Systems Constitutional: Negative - Fever, Chills Gastrointestinal: Abdominal Pain, Diarrhea, Nausea Genitourinary: Negative - Blood in stool All Other Systems Reviewed And Are Negative: Yes Physical Exam Triage Information Reviewed: Yes Vital Signs: Initial Vital Signs Temp 98 F 10/22/17 11:58 Pulse 81 10/22/17 11:58 Resp 20 10/22/17 11:58 BP 173/88 10/22/17 11:58 Pulse Ox 99 10/22/17 11:58 Vital Signs Reviewed: Yes Eye Exam: Normal Eyes: Positive: Conjunctiva Clear ENT Exam: Normal ENT: Positive: Normal ENT inspection, Hearing grossly normal Dental Exam: Normal Neck exam: Normal Neck: Positive: Supple, Nontender, No Lymphadenopathy Respiratory Exam: Normal Respiratory: Positive: Chest non-tender, Lungs clear, Normal breath sounds, No respiratory distress, No accessory muscle use Cardiovascular Exam: Normal Cardiovascular: Positive: RRR, No Murmur Abdominal Exam: Normal Abdomen Description: Positive: Nontender, No Organomegaly, Soft, Other: - abd soft + BS no guarding, no rebound No CVA b/l. Negative: CVA Tenderness (R) Bowel Sounds: Positive: Present Musculoskeletal Exam: Normal Musculoskeletal: Positive: Strength Intact Neurological Exam: Normal Neurological: Positive: Alert Psychological Exam: Normal Skin Exam: Normal Re-Evaluation - Re-Evaluation First Eval Comment: no ketone in urine. driking water. will discharge. return precautions. pt in agreement with plan Course/Dx - Course Course Of Treatment: Blood pressure noted and patient informed to follow up with PCP. Pt presents with n/d x 3-4 days. Today with body aches. Pt states today has body aches. No analgesia taken. Pt states has abdominal cramping improves with BM. No discomfort at present. Pt with stable VS and noncerning exam. will check flu- given exposure. will check for urine for ketone. zofran , apap. stool collection kit. return precations. pt comfortable and in agreement with plan - Differential Dx - Multi-Symptom Provider Diagnoses: nausea and diarrhea Discharge - Discharge Plan Condition: Stable Disposition: HOME Patient Education Materials: Acute Nausea and Vomiting (ED), Acute Diarrhea (ED ) Referrals: Jamari Roman MD [Primary Care Provider] - Additional Instructions: - For the first 6 hours, eat and drink clears (water, reymundo migel, soup broth, jello, popsicles, Gatorade). If you tolerate this okay, add bland foods such as dry toast, scrambled eggs, crackers. Wait until you are feeling better for 24 hours before eating spicy food, acidic food, tomato based food, fried food. - Okay to take nausea medication as prescribed - okay take immodium to help with your diarrhea. You were sent home with a stool collection kit. It is recommended you bring a stool sample back for additional testing. - If you develop fevers, uncontrolled vomiting or diarrhea, increased abdominal pain or any other questions or concerns, it is recommended you go to the emergency department for follow-up The documentation as recorded by the Giorgi munroe Julia accurately reflects the service I personally performed and the decisions made by Viktor louis Laura, MD. The documentation as recorded by the Cheo munroe Jennifer accurately reflects the service I personally performed and the decisions made by Viktor louis Laura, MD.
[2017-10-22] MEDS ORDERED: Acetaminophen TAB* 325 MG PO ONE (12:34)
== END 2017-10-22 13:04 | disposition home or self-care (01) ==
LOC: UCEAST 11:51
DX: R11.0 Nausea (principal); R19.7 Diarrhea, unspecified; Z88.3 Allergy status to other anti-infective agents; Z88.8 Allergy status to other drugs, medicaments and biological substances; Z88.0 Allergy status to penicillin
CPT/HCPCS: 81003; 87086; 87502; 99212; A9270-GY; G0463

== ENCOUNTER 2017-10-22 15:44 | Emergency (ER) | payer OTHER ==
[2017-10-22 17:07] LABS: ABS Basophils 0.1 10^3/ul (0-0.2); ABS Eosinophils 0.1 10^3/ul (0-0.6); ABS Monocytes 0.5 10^3/ul (0-0.8); ABS Neutrophils 5.8 10^3/ul (1.5-7.7); ABS Nucleated RBC 0 10^3/ul; Eosinophil % 0.9 % (0-6); Hematocrit 40 % (35-47); Hemoglobin 12.8 g/dl (12.0-16.0); Lymphocyte % 24.1 % (25-47); Mean Corpuscular HGB Conc 32 g/dl (31-36); Mean Corpuscular Hemoglobin 25 pg (27-31); Mean Corpuscular Volume 77 fL (80-97); Mean Platelet Volume 8 um3 (7.4-10.4); Nucleated Red Blood Cells % 0; Platelet Count 260 10^3/ul (150-450); Red Blood Count 5.18 10^6/ul (4.0-5.4); Red Cell Distribution Width 16 % (10.5-15); White Blood Count 8.4 10^3/ul (3.5-10.8)
--- NOTE | 2017-10-22 17:07 | RAD ---
INDICATION: Hypertension. COMPARISON: Comparison is prior study from May 22, 2017. TECHNIQUE: A portable view of the chest was obtained. FINDINGS: The heart is mildly enlarged and unchanged. The lungs are underinflated and grossly clear. No pleural effusion is seen. IMPRESSION: MILD CARDIOMEGALY, UNCHANGED.
[2017-10-22 17:23] LABS: EGFR Non-African American 98.6 (>60)
[2017-10-22 17:49] VITALS: BP 146/55
--- NOTE | 2017-10-24 08:11 | ED ---
Sumeet Miranda Angela, scribed for Andre Barron MD on 10/22/17 at 1638 . Hypertension - HPI Summary HPI Summary: This pt is a 51 y/o female presenting to [facility] for elevated blood pressure. Pt reports that over the last year pt has had intermittent elevated blood pressure. She notes that her hypertension is due to stress from her daughter, as she is a special needs person. Pt additionally states she does get intermittent headaches. Denies chest pain, blurry vision, SOB, abd pain, nausea , vomiting. She denies taking any antihypertensive medications. PMHx: hypothyroid, HTN, asthma. - History of Current Complaint Chief Complaint: EDHypertension Stated Complaint: HIGH BLOOD PRESSURE Time Seen by Provider: 10/22/17 16:07 Hx Obtained From: Patient Hx Last Menstrual Period: 08/17/17 Onset/Duration: Started Weeks Ago, Still Present Timing: Intermittent, Lasting Weeks Aggravating Factor(s): Other: - stress Alleviating Factor(s): Nothing Associated Signs & Symptoms: Anxiety/Stress - stress, Headaches, Other: - NEG: chest pain, visual changes, SOB, nausea, vomiting, abd pain - Allergies/Home Medications Allergies/Adverse Reactions: Allergies Allergy/AdvReac Type Severity Reaction Status Date / Time cefaclor [From Ceclor] Allergy Rash Verified 10/08/17 12:11 cefuroxime [From Ceftin] Allergy Rash Verified 10/08/17 12:12 lactose Allergy GI Upset Verified 10/08/17 12:12 peanut Allergy anaph Verified 10/08/17 12:10 Penicillins Allergy Rash Verified 10/08/17 12:11 PMH/Surg Hx/FS Hx/Imm Hx Endocrine/Hematology History: Reports: Hx Thyroid Disease - hypothyroid Denies: Hx Diabetes Cardiovascular History: Reports: Hx Hypercholesterolemia, Hx Hypertension Denies: Hx Pacemaker/ICD Respiratory History: Reports: Hx Asthma Denies: Hx Chronic Obstructive Pulmonary Disease (COPD) GI History: Denies: Hx Ulcer History: Reports: Hx Kidney Stones Denies: Hx Renal Disease Sensory History: Reports: Hx Contacts or Glasses Denies: Hx Hearing Aid Opthamlomology History: Reports: Hx Contacts or Glasses Psychiatric History: Reports: Hx Depression, Hx Panic Disorder - ANXIETY - Cancer History Cancer Type, Location and Year: depression Hx Chemotherapy: No Hx Radiation Therapy: No - Surgical History Surgery Procedure, Year, and Place: d&c -2005. uterine ablasion-2008. C- sections 1989 & 2001. D&C 05/12/13 Infectious Disease History: No Infectious Disease History: Denies: Hx Clostridium Difficile, Hx Hepatitis, Hx Human Immunodeficiency Virus (HIV), Hx of Known/Suspected MRSA, Hx Shingles, Hx Tuberculosis, Hx Known/ Suspected VRE, Hx Known/Suspected VRSA, History Other Infectious Disease, Traveled Outside the [place] in Last 30 Days - Family History Known Family History: Positive: Hypertension - mother, Diabetes, Other - Colon Cancer - father; Breast CA - great aunt Negative: Cardiac Disease - Social History Alcohol Use: None Substance Use Type: Reports: None Hx Tobacco Use: No Smoking Status (MU): Never Smoked Tobacco Have You Smoked in the Last Year: No Review of Systems Negative: Fever, Chills Negative: Blurred Vision Negative: Chest Pain Negative: Shortness Of Breath Negative: Abdominal Pain, Vomiting, Nausea Positive: Headache - intermittent All Other Systems Reviewed And Are Negative: Yes Physical Exam - Summary Physical Exam Summary: VITAL SIGNS: Reviewed. GENERAL: Patient is an obese female who is lying comfortable in the stretcher. Patient is not in any acute respiratory distress. HEAD AND FACE: No signs of trauma. No ecchymosis, hematomas or skull depressions. No sinus tenderness. EYES: PERRLA, EOMI x 2, No injected conjunctiva, no nystagmus. EARS: Hearing grossly intact. Ear canals and tympanic membranes are within normal limits. MOUTH: Oropharynx within normal limits. NECK: Supple, trachea is midline, no adenopathy, no JVD, no carotid bruit, no c- spine tenderness, neck with full ROM. CHEST: Symmetric, no tenderness at palpation LUNGS: Clear to auscultation bilaterally. No wheezing or crackles. CVS: Regular rate and rhythm, S1 and S2 present, no murmurs or gallops appreciated. ABDOMEN: Soft, non-tender. No signs of distention. No rebound no guarding, and no masses palpated. Bowel sounds are normal. EXTREMITIES: FROM in all major joints, no edema, no cyanosis or clubbing. NEURO: Alert and oriented x 3. No acute neurological deficits. Speech is normal and follows commands. SKIN: Dry and warm Triage Information Reviewed: Yes Vital Signs On Initial Exam: Initial Vitals Temp Pulse Resp BP Pulse Ox 98.7 F 105 18 175/96 97 10/22/17 15:47 10/22/17 15:47 10/22/17 15:47 10/22/17 15:47 10/22/17 15:47 Vital Signs Reviewed: Yes Diagnostics - Vital Signs Vital Signs Temp Pulse Resp BP Pulse Ox 10/22/17 16:31 98.7 F 97 18 148/71 96 10/22/17 15:47 98.7 F 105 18 175/96 97 - Laboratory Lab Results: Lab Results 10/22/17 10/22/17 Range/Units 16:55 16:55 WBC 8.4 (3.5-10.8) 10^3/ul RBC 5.18 (4.0-5.4) 10^6/ul Hgb 12.8 (12.0-16.0) g/dl Hct 40 (35-47) % MCV 77 L (80-97) fL MCH 25 L (27-31) pg MCHC 32 (31-36) g/dl RDW 16 H (10.5-15) % Plt Count 260 (150-450) 10^3/ul MPV 8 (7.4-10.4) um3 Neut % (Auto) 68.0 (38-83) % Lymph % (Auto) 24.1 L (25-47) % Warrick % (Auto) 6.2 (0-7) % Eos % (Auto) 0.9 (0-6) % Baso % (Auto) 0.8 (0-2) % Absolute Neuts (auto) 5.8 (1.5-7.7) 10^3/ul Absolute Lymphs (auto) 2.0 (1.0-4.8) 10^3/ul Absolute Monos (auto) 0.5 (0-0.8) 10^3/ul Absolute Eos (auto) 0.1 (0-0.6) 10^3/ul Absolute Basos (auto) 0.1 (0-0.2) 10^3/ul Absolute Nucleated RBC 0 10^3/ul Nucleated RBC % 0 Sodium 137 (133-145) mmol/L Potassium 4.1 (3.5-5.0) mmol/L Chloride 103 (101-111) mmol/L Carbon Dioxide 27 (22-32) mmol/L Anion Gap 7 (2-11) mmol/L BUN 10 (6-24) mg/dL Creatinine 0.64 (0.51-0.95) mg/dL Est GFR ( Amer) 126.8 (>60) Est GFR (Non-Af Amer) 98.6 (>60) BUN/Creatinine Ratio 15.6 (8-20) Glucose 181 H (70-100) mg/dL Calcium 9.4 (8.6-10.3) mg/dL Total Bilirubin 0.30 (0.2-1.0) mg/dL AST 17 (13-39) U/L ALT 17 (7-52) U/L Alkaline Phosphatase 78 (34-104) U/L Total Protein 7.0 (6.4-8.9) g/dL Albumin 4.0 (3.2-5.2) g/dL Globulin 3.0 (2-4) g/dL Albumin/Globulin Ratio 1.3 (1-3) Result Diagrams: 10/22/17 16:55 10/22/17 16:55 Lab Statement: Any lab studies that have been ordered have been reviewed, and results considered in the medical decision making process. - Radiology Chest XR Xray Interpretation: Positive (See Comments) - IMPRESSION: Mild cardiomegaly, unchanged. Dr. Barron has reviewed this radiology report. Radiology Interpretation Completed By: Radiologist - EKG 15:52 Cardiac Rate: NL EKG Rhythm: Sinus Rhythm - at 99 bpm EKG Interpretation: No ST elevations. Re-Evaluation - Re-Evaluation First Eval Re-Evaluation Time: 17:27 Comment: I reviewed the XR and lab results with the pt. She will be discharged. Hypertension Course/Dx - Course Assessment/Plan: This pt is a 51 y/o female presenting to [facility] for elevated blood pressure. Pt reports that over the last year pt has had intermittent elevated blood pressure. She notes that her hypertension is due to stress from her daughter, as she is a special needs person. Pt additionally states she does get intermittent headaches. Denies chest pain, blurry vision, SOB, abd pain, nausea, vomiting. She denies taking any antihypertensive medications. PMHx: hypothyroid, HTN, asthma. Test results without any significant abnormalities except for glucose of 181. Chest XR: Mild cardiomegaly, unchanged. Upon examining the pt, her blood pressure is 131/51. Pt will be discharged to home with follow up from her PCP. She was given a prescription for chlorthalidone. I discussed all the findings and test results with the patient. Patient was instructed to return to the emergency room immediately if any of the symptoms return or worsens. Plan of care was discussed with the patient and understands and agrees. All questions were answered at patient satisfaction. There were no further complaints or concerns. She is instructed to return to the ED for any worsening or new symptoms. Pt is hemodynamically stable, alert and oriented x3. - Diagnoses Provider Diagnoses: Uncontrolled hypertension Discharge - Discharge Plan Condition: Stable Disposition: HOME Prescriptions: Chlorthalidone TAB* [Hygroton TAB*] 25 mg PO DAILY #15 tab Patient Education Materials: Hypertension (ED) Referrals: Jamari Roman MD [Primary Care Provider] - 3 Days Additional Instructions: Please follow up with your primary care provider. RETURN TO THE ED FOR ANY WORSENING SYMPTOMS. The documentation as recorded by the Sumeet munroe Angela accurately reflects the service I personally performed and the decisions made by , Andre Barron MD.
== END 2017-10-22 17:47 | disposition home or self-care (01) ==
LOC: ED 15:44
DX: I10 Essential (primary) hypertension (principal)
CPT/HCPCS: 36415; 71045; 80053; 85025; 93005; 99283

== ENCOUNTER 2018-04-21 18:36 | Emergency (ER) | payer OTHER ==
--- OUTSIDE RECORDS SUMMARY | 2018-04-21 18:45 | XMS REPORT ---
:1965 Author Organization [facility] Address [address] [place] [address] Care Team Providers Name Role Phone Caty Diehl Unavailable Unavailable PROBLEMS Type Condition ICD9-CM Code ACY61-ED Code Onset Condition SNOMED Code Dates Status Problem Morbid (severe) E66.01 Active 245759799 obesity due to excess calories Problem Elevated R03.0 Active 683025836 blood-pressure reading, without diagnosis of hypertension Problem Leiomyoma of D25.9 Active 04226671 uterus, unspecified Problem Irregular N92.6 Active 12327175 menstruation, unspecified Problem Family history of Z80.0 Active 585540269 malignant neoplasm of digestive organs ALLERGIES No Information ENCOUNTERS Encounter Location Date Diagnosis [facility] [address], [place] [id number] [facility] [address], [place] [id number] [facility] [address], OBGYN [place] [id number] [facility] [address] Jan, Irregular menstruation, [facility] unspecified N92.6 and [place], [place] [id number] Leiomyoma of uterus, unspecified D25.9 [facility] [address] Jan, Leiomyoma of uterus, [facility] unspecified D25.9 and [place], [place] [id number] Abnormal findings on diagnostic imaging of other specified body structures R93.[address] Oct, [address]YN [address] [place], [place] [id number] [place] [address] Sep, [facility] [address] [place] [address], examination (general) [place] [id number] (routine) with abnormal findings Z01.411 ; Leiomyoma of uterus, unspecified D25.9 ; Irregular menstruation, unspecified N92.6 ; Encounter for other screening for malignant neoplasm of breast Z12.39 ; Morbid (severe) obesity due to excess calories E66.01 and Elevated blood-pressure reading, without diagnosis of hypertension R03.[address] [place] [address] Jul, Leiomyoma of uterus, [address] [place] [address], unspecified D25.9 and [place] [id number] Irregular menstruation, unspecified N92.6 [facility] [address] Jul, [facility]omyoma of uterus, [facility] unspecified D25.9 and [place], [place] [id number] Irregular menstruation, unspecified N92.6 [facility] [address] Jan, O[place] [id number] [facility] 103 Jan, Excessive and frequent [facility] with regular [place], [place] [id number] cycle N92.0 ; Irregular menstruation, unspecified N92.6 and Leiomyoma of uterus, unspecified D25.9 [facility] 103 Jan, Excessive and frequent [facility] menstruation with regular [place] [id number] cycle N92.0 ; Irregular menstruation, unspecified N92.6 and Leiomyoma of uterus, unspecified D25.[address] December, Irregular menstruation , [address] [place] [address], unspecified N92.6 [place] [id number] [address] 03 Sep, 2016 Encounter for [facility]ological [facility] [address] [place] [address], examination (general) [place] [id number] (routine) without abnormal findings Z01.419 ; Encounter for screening mammogram for malignant neoplasm of breast Z12.31 ; Body mass index (BMI) 45.0-49.9, adult Z68.42 and Family history of malignant neoplasm of digestive organs Z80.[address] May, [facility] [address] [place] [id number] 14 May, 2016 Encounter for gynecological [facility] [address], examination (general) [place] [id number] (routine) without abnormal findings Z01.419 ; Encounter for screening mammogram for malignant neoplasm of breast Z12.31 ; Leiomyoma of uterus, unspecified D25.9 and Body mass index (BMI) 45.0-49.9, adult Z68.[address] 09 May, 2015 Encounter for screening [facility] [address], mammogram for malignant [place] [id number] neoplasm of breast Z12.31 ; Excessive and frequent menstruation with regular cycle N92.0 ; Leiomyoma of uterus, unspecified D25.9 ; Body mass index (BMI) 45.0-49.9, adult Z68.42 and Encounter for gynecological examination (general) (routine) with abnormal findings Z01.411 [facility] 103 Feb, FM HX OVARY [facility]NANCY [facility] V16.41 ; FM HX GENITAL [place], [place] [id number] MALIG NEC V16.49 ; Menometrorrhagia 626.2 and VULVAR LESION 624.9 [facility] 103 Feb, UTERINE FIBROIDS- UNSPEC [facility] 218.9 [place] [id number] [facility] 103 17 Feb, 2014 [place] [id number] [facility] [address] [place] [address] Feb[facility] [address] [id number] [facility] [address] Feb, [place] [id number] [facility] [address] [place] [address] Jan, VULVAR LESION 624.[address] [id number] [facility] 103 Jan, FM HX OVARY MALIGNANCY OBGYN [facility] V16.41 ; FM HX GENITAL [place], [place] [id number] MALIG NEC V16.49 ; Menometrorrhagia 626.2 and VULVAR LESION 624.9 [facility] 103 Jan, FM HX OVARY MALIGNANCY OBGYN [facility] V16.41 ; FM HX GENITAL [place], [place] [id number] MALIG NEC V16.49 and Menometrorrhagia 626.2 [facility] 103 Jan, FM HX OVARY MALIGNANCY OBGYN [facility] V16.41 ; FM HX GENITAL [place], [place] [id number] MALIG NEC V16.49 and Menometrorrhagia 626.[address] Nov, ROUTINE MANAGER INTEGRATION EXAMINATION OBGYN [address] [place] [address], V72.31 and PAP SMEAR W/O [place] [id number] MANAGER INTEGRATION EXAM V76.2 [facility] 103 Sep, OBGYN [place] [id number] [address] Sep, Menorrhagia 626.2 ; OBGYN [address] [place], Endometrial polyp 621.0 ; [place] [id number] FM HX OVARY MALIGNANCY V16.41 ; FM HX GENITAL MALIG NEC V16.49 and SCREEN MAMMOGRAM NEC V76.[address] Sep, OBGYN Road [address] [place] [id number] Jun, Menorrhagia 626.2 ; OBGYN [address] [place], Endometrial polyp 621.0 ; [place] [id number] FM HX OVARY MALIGNANCY V16.41 ; FM HX GENITAL MALIG NEC V16.49 and Body Mass Index 45.0-49.9, adult V85.42 [facility] [address] [place] [place] [id number] [address] May, Menorrhagia 626.2 ; OBGYN [address] [place], Endometrial polyp 621.0 ; [place] [id number] FM HX OVARY MALIGNANCY V16.41 and FM HX GENITAL MALIG NEC V16.49 [facility] 103 Mar, [place] [id number] [facility] [address] [place] [address] [facility] Mar, Menorrhagia 626.2 ; OBGYN [address] [place], Endometrial polyp 621.0 ; [place] [id number] FM HX OVARY MALIGNANCY V16.41 and FM HX GENITAL MALIG NEC V16.49 [place] [facility] [address] [place] [address] Mar, OBGYN Road [address] [place] [id number] [facility] 103 December, [place] [id number] [facility] 103 Nov, [place] [id number] [facility] [address] [place] [address] Nov, Menorrhagia 626.2 ; OBGYN [address] [place], Endometrial polyp 621.0 ; [place] [id number] FM HX OVARY MALIGNANCY V16.41 and FM HX GENITAL MALIG NEC V16.49 [facility] 103 Nov, [place] [id number] [facility] 103 Nov, [place] [id number] [facility] 103 Nov, [place] [id number] [facility] [address] [place] [address] Nov, Menorrhagia [address] [place] [id number] [facility] 103 Nov, Menorrhagia 626.2 [place] [id number] [facility] 103 Nov, Menorrhagia 626.2 ; FM HX OBGYN [facility] OVARY MALIGNANCY V16.41 and [place], [place] [id number] Endometrial polyp 621.0 [facility] 103 Jun, O[place] [id number] [place] [facility] [address] [facility] Jun, UTERINE FIBROIDS- UNSPEC OBGYN Road [address] [place], 218.9 ; FM H[place] OVARY [place] [id number] MALIGNANCY V16.41 ; FM HX GENITAL MALIG NOS V16.40 and Menorrhagia 626.2 [facility] 103 Jun, [place] [id number] [facility] 103 Jun, [place] [id number] [facility] 103 Jun, [place] [id number] [facility] 103 Jun, [place] [id number] [facility] 103 May, UTERINE FIBROIDS- UNSPEC OBGYN [facility] 218.9 ; FM HX OVARY [place], [place] [id number] MALIGNANCY V16.41 and FM HX GENITAL MALIG NOS V16.40 [facility] 103 May, Enlarged uterus 621.2 and OBGYN [facility] UTERINE FIBROIDS-UNSPEC [place], [place] [id number] 218.9 [facility] 103 Apr, [place] [id number] [facility] 103 Apr, UTERINE FIBROIDS- UNSPEC OBGYN [facility] 218.9 [place], [place] [id number] [facility] 103 Mar, OBGYN [place], [place] [id number] IMMUNIZATIONS No Known Immunizations SOCIAL HISTORY Never Assessed REASON FOR REFERRAL FUNCTIONAL STATUS PLAN OF CARE VITAL SIGNS MEDICATIONS Unknown Medications PROCEDURES No Known procedures RESULTS No Results REASON FOR VISIT [facility] Insurance Providers [facility] Health Member Patient Patient Patient Patient Patient Subscriber Subscriber Subscriber Group Insurance Plan Plan Plan Plan ID Relationship Address Phone Name Date of ID Name Date of No Type Insurance Insurance Insurance Coverage to Subscriber Address Phone Name Dates [address] [phone] Raheel Samuel [id number] [address] [address] MEDICAL (GENERAL) HISTORY Type Description Date Medical History anemia before EM ablation Medical History hypothyriodism Medical History fibriods Medical History migraines w/ visual aura Medical History BRCA neg Medical History Colaris neg Medical History px arthritis in left knee Surgical History Hysteroscopy/D&C (Dr. Burciaga) 09-29-09 Surgical History 05-26-06 Hysteroscopy/D&C/Thermachoice EM ablation 05-26-06 (Dr. Burciaga) Surgical History C/S x 2 Surgical History Hysteroscopy/D&C/polypectomy 05-18-13 Hospitalization History childbirth
--- OUTSIDE RECORDS SUMMARY | 2018-04-21 18:45 | XMS REPORT ---
:1965 Author Organization [facility] Address [address] [place] [address] Care Team Providers Name Role Phone Caty Diehl Unavailable Unavailable PROBLEMS Type Condition ICD9-CM Code OAG70-QF Code Onset Condition SNOMED Code Dates Status Problem Morbid (severe) E66.01 Active 994540367 obesity due to excess calories Problem Elevated R03.0 Active 225407678 blood-pressure reading, without diagnosis of hypertension Problem Leiomyoma of D25.9 Active 73421850 uterus, unspecified Problem Irregular N92.6 Active 79629338 menstruation, unspecified Problem Family history of Z80.0 Active 035254164 malignant neoplasm of digestive organs ALLERGIES Substance Reaction Event Type Date Status Dairy hives Drug Allergy Mar, Active penicillin hives Drug Allergy Mar, Active Ceclor hives Drug Allergy Mar, Active Ceftin hives Drug Allergy Mar, Active ENCOUNTERS Encounter Location Date Diagnosis [address] Apr, [facility] [address] [place], [place] [id number] [facility] Apr, OBGYN [place] [id number] [facility] Apr, [place] [id number] [facility] Apr, OBGYN [place] [id number] [facility] Mar, Irregular menstruation, [facility] unspecified N92.6 and [place], [place] [id number] Leiomyoma of uterus, unspecified D25.9 [facility] 103 Mar, Leiomyoma of uterus, [facility] unspecified D25.9 and [place], [place] [id number] Abnormal findings on diagnostic imaging of other specified body structures R93.8 [facility] Mar, [place] [id number] [facility] Jan, Irregular menstruation, [facility] unspecified N92.6 and [place] [id number] Leiomyoma of uterus, unspecified D25.9 [facility] Jan, Leiomyoma of uterus, [facility] unspecified D25.9 and [place], [place] [id number] Abnormal findings on diagnostic imaging of other specified body structures R93.[address] Oct, [facility] [address] [id number] [address] Sep, Encounter for gynecological [facility] [address], examination (general) [place] [id number] (routine) with abnormal findings Z01.411 ; Leiomyoma of uterus, unspecified D25.9 ; Irregular menstruation, unspecified N92.6 ; Encounter for other screening for malignant neoplasm of breast Z12.39 ; Morbid (severe) obesity due to excess calories E66.01 and Elevated blood-pressure reading, without diagnosis of hypertension R03.[address] Jul, Leiomyoma of uterus, [facility] [address] [place] [address], unspecified D25.9 and [place] [id number] Irregular menstruation, unspecified N92.6 [facility] 103 Jul, Leiomyoma of uterus, [facility] unspecified D25.9 and [place], [place] [id number] Irregular menstruation, unspecified N92.6 [facility] Jan, [place] [id number] [facility] Jan, Excessive and frequent OBGYN [facility] menstruation with regular [place], [place] [id number] cycle N92.0 ; Irregular menstruation, unspecified N92.6 and Leiomyoma of uterus, unspecified D25.9 [facility] 103 Jan, Excessive and frequent OBGYN [facility] menstruation with regular [place], [place] [id number] cycle N92.0 ; Irregular menstruation, unspecified N92.6 and Leiomyoma of uterus, unspecified D25.[address] December, Irregular menstruation , [address] [place] [address], unspecified N92.6 [place] [id number] [address] Sep, Encounter for gynecological [facility] [address], examination (general) [place] [id number] (routine) without abnormal findings Z01.419 ; Encounter for screening mammogram for malignant neoplasm of breast Z12.31 ; Body mass index (BMI) 45.0-49.9, adult Z68.42 and Family history of malignant neoplasm of digestive organs Z80.[address] May, [address] [place] [address], [place] [id number] [address] May, Encounter for gynecological [address], examination (general) [place] [id number] (routine) without abnormal findings Z01.419 ; Encounter for screening mammogram for malignant neoplasm of breast Z12.31 ; Leiomyoma of uterus, unspecified D25.9 and Body mass index (BMI) 45.0-49.9, adult Z68.[address] May, [facility] for screening [facility] [address] [place] [address], mammogram for malignant [place] [id number] neoplasm of breast Z12.31 ; Excessive and frequent menstruation with regular cycle N92.0 ; Leiomyoma of uterus, unspecified D25.9 ; Body mass index (BMI) 45.0-49.9, adult Z68.42 and Encounter for gynecological examination (general) (routine) with abnormal findings Z01.411 [facility] 103 Feb, FM HX OVARY MALIGNANCY OBGYN [facility] V16.41 ; FM HX GENITAL [place], [place] [id number] MALIG NEC V16.49 ; Menometrorrhagia 626.2 and VULVAR LESION 624.9 [place] [facility] Feb, UTERINE FIBROIDS- UNSPEC OBGYN [facility] 218.9 [place], [place] [id number] [facility] 103 Feb, OBGYN [place] [id number] [address] Feb, OBGYN [address] [place], [place] [id number] [facility] Feb, OBGYN [place], [place] [id number] [address] Jan, VULVAR LESION [address] [place], [place] [id number] [facility] 103 Jan, FM HX OVARY MALIGNANCY OBGYN [facility] V16.41 ; FM HX GENITAL [place], [place] [id number] MALIG NEC V16.49 ; Menometrorrhagia 626.2 and VULVAR LESION 624.9 [facility] 103 Jan, FM HX OVARY MALIGNANCY OBGYN [facility] V16.41 ; FM HX GENITAL [place], [place] [id number] MALIG NEC V16.49 and Menometrorrhagia 626.2 [facility] 103 Jan, FM HX OVARY MALIGNANCY OBGYN [facility] V16.41 ; FM HX GENITAL [place], [place] [id number] MALIG NEC V16.49 and Menometrorrhagia 626.[address] Nov, ROUTINE PILATES INSTRUCTOR EXAMINATION OBGYN [address] [place], V72.31 and PAP SMEAR W/O [place] [id number] PILATES INSTRUCTOR EXAM V76.2 [facility] 103 Sep, OBGYN [place] [id number] [address] Sep, Menorrhagia 626.2 ; OBGYN [address] [place], Endometrial polyp 621.0 ; [place] [id number] FM HX OVARY MALIGNANCY V16.41 ; FM HX GENITAL MALIG NEC V16.49 and SCREEN MAMMOGRAM NEC V76.[address] Sep, OBGYN [address] [place], [place] [id number] [facility] Jun, Menorrhagia 626.2 ; OBGYN [address] [place], Endometrial polyp 621.0 ; [place] [id number] FM HX OVARY MALIGNANCY V16.41 ; FM HX GENITAL MALIG NEC V16.49 and Body Mass Index 45.0-49.9, adult V85.42 [facility] [address] [place], May, [facility] [id number] [address] May, Menorrhagia 626.2 ; OBGYN [address] [place] [address], Endometrial polyp 621.0 ; [place] [id number] FM HX OVARY MALIGNANCY V16.41 and FM HX GENITAL MALIG NEC V16.49 [facility] Mar, [place], [place] [id number] [address] Mar, Menorrhagia 626.2 ; OBGYN Road [address] [place] [address], Endometrial polyp 621.0 ; [place] [id number] FM HX OVARY MALIGNANCY V16.41 and FM HX GENITAL MALIG NEC V16.[address] Mar, OBGYN Road [address] [place] [id number] [facility] 103 December, [place], [place] [id number] [facility] Nov, [place] [id number] [place] [address] Nov, Menorrhagia 626.2 ; OBGYN [address] [place], Endometrial polyp 621.0 ; [place] [id number] FM HX OVARY MALIGNANCY V16.41 and FM HX GENITAL MALIG NEC V16.49 [place] [facility] Nov, [place] [id number] [place] [facility] Nov, [place] [id number] [place] [facility] Nov, [place] [id number] [place] [address] Nov, Menorrhagia 626.2 [facility] [address] [place], [place] [id number] [place] [facility] 103 Nov, Menorrhagia 626.2 [place] [id number] [place] [facility] 103 Nov, Menorrhagia 626.2 ; FM HX [facility] OVARY MALIGNANCY V16.41 and [place], [place] [id number] Endometrial polyp 621.0 [place] [facility] Jun, [place] [id number] [place] [facility] [address] [place] [address] Jun, UTERINE FIBROIDS- UNSPEC OBGY Road [address] [place], 218.9 ; FM HX OVARY [place] [id number] MALIGNANCY V16.41 ; FM HX GENITAL MALIG NOS V16.40 and Menorrhagia 626.2 [place] [facility] Jun, [place] [id number] [place] [facility] 103 Jun, [place] [id number] [place] [facility] Jun, [place] [id number] [place] [facility] Jun, [place] [id number] [place] [facility] 103 May, [facility]- [facility]PEC [facility] 218.9 ; FM HX OVARY [place], [place] [id number] MALIGNANCY V16.41 and FM HX GENITAL MALIG NOS V16.40 [facility] 103 May, Enlarged uterus 621.2 and OBGYN [facility] UTERINE FIBROIDS-UNSPEC [place], [place] [id number] 218.9 [facility] 103 Apr, OBGYN [place] [id number] [facility] 103 Apr, UTERINE FIBROIDS- UNSPEC OBN [facility] 218.9 [place], [place] [id number] [place] [facility] Mar, [place], [place] [id number] IMMUNIZATIONS No Known Immunizations SOCIAL HISTORY Never Assessed REASON FOR REFERRAL FUNCTIONAL STATUS PLAN OF CARE Activity Details Follow Up Refer to Dr. Kaplan for elevated hemoglobin A1C. Hysterosonogram/EMB w/ f/u Reason: VITAL SIGNS Height 64.5 in 2018-04-03 Weight 278 lbs 2018-04-03 BMI 46.98 kg/m2 2018-04-03 Blood pressure systolic 142 mm Hg 2018-04-03 Blood pressure diastolic 80 mm Hg 2018-04-03 MEDICATIONS Medication Instructions Dosage Frequency Start End Date Duration Status Date Synthroid 1 tab 24h Active 125mcg [place] 3 1 tab 24h Active cranberry Plus 1 tab 24h Active 8400 lisinopril 10 orally once a 1 tab(s) 24h Active mg day niacin 500 mg orally once 1 tab(s) 24h Not-Takin daily g Klonopin 0.5 mg orally PRN 1 tab(s) Active misoprostol 200 orally 1 tab 1 tab(s) Mar, 1 day Active mcg with dinner, 2017 tab before bed, 1 tab morning of procedure Zoloft 100 mg orally qd 1 tab 24h Active PROCEDURES No Known procedures RESULTS No Results REASON FOR VISIT [facility] Insurance Providers [facility] Member Patient Patient Patient Patient Patient Subscriber Subscriber Subscriber Group Insurance Plan Plan Plan Plan ID Relationship Address Phone Name Date of ID Name Date of No Type Insurance Insurance Insurance Coverage to Subscriber Address Phone Name Dates Raheel ALLA HUDSON [phone] Raheel mikayla Samuel [id number] [facility] [address] [place] [id number] MEDICAL (GENERAL) HISTORY Type Description Date Medical [...]
[2018-04-21 19:08] VITALS: BP 116/55
--- NOTE | 2018-04-21 20:19 | UC ---
UC General HPI - HPI Summary HPI Summary: 52 yo female c/o feeling bad all day. Had two episodes of feeling feverish, in the interim one episode of shaking all over. + sinus congestion, nasal drip, pressure sinus, scratchy throat. No cough, chest pain, sob. No GI issues, although appetite decreased today. No urinary issues, no freq /urg / dysuria. No rash. She is concerned about possible contagious illness including influenza , d/t having spent time at a large [place] last weekend with people from different locations. - History of Current Complaint Chief Complaint: UCGeneralIllness Stated Complaint: FEVER,TREMBLING,SHAKING Hx Obtained From: Patient Hx Last Menstrual Period: 03/21/2018 Pain Intensity: 0 - Allergy/Home Medications Allergies/Adverse Reactions: Allergies Allergy/AdvReac Type Severity Reaction Status Date / Time cefaclor [From Ceclor] Allergy Rash Verified 04/21/18 19:09 cefuroxime [From Ceftin] Allergy Rash Verified 04/21/18 19:09 lactose Allergy GI Upset Verified 04/21/18 19:09 peanut Allergy anaph Verified 04/21/18 19:09 Penicillins Allergy Rash Verified 04/21/18 19:09 PMH/Surg Hx/FS Hx/Imm Hx Previously Healthy: Yes Endocrine History: Thyroid Disease - Surgical History Surgical History: Yes Surgery Procedure, Year, and Place: d&c -2005. uterine ablasion-2008. C- sections 1989 & 2001. D&C 05/12/13 - Family History Known Family History: Positive: Unknown, Hypertension - mother, Diabetes, Other - Colon Cancer - father; Breast CA - great aunt Negative: Cardiac Disease - Social History Alcohol Use: None Substance Use Type: None Smoking Status (MU): Never Smoked Tobacco Have You Smoked in the Last Year: No - Immunization History Most Recent Tetanus Shot: >10 years Review of Systems Constitutional: Fever, Chills, Fatigue Skin: Negative - see hpi Eyes: Negative ENT: Other - see hpi Respiratory: Other - see hpi Cardiovascular: Negative Gastrointestinal: Negative Genitourinary: Negative Motor: Negative Neurovascular: Negative Musculoskeletal: Negative Neurological: Negative Psychological: Negative Is Patient Immunocompromised?: No All Other Systems Reviewed And Are Negative: Yes Physical Exam Triage Information Reviewed: Yes Appearance: Well-Appearing, Well-Nourished Vital Signs: Initial Vital Signs Temp 97.9 F 04/21/18 19:01 Pulse 59 04/21/18 19:01 Resp 16 04/21/18 19:01 BP 116/55 04/21/18 19:01 Pulse Ox 100 04/21/18 19:01 Vital Signs Reviewed: Yes Eye Exam: Normal ENT Exam: Normal ENT: Positive: Pharyngeal erythema, Other - TM's clear, eac clear. Post pharynx + redness, no sores / exudates, + post nasal drip. Uvula midline. Neck exam: Normal - no c/o neck pain Respiratory: Positive: Chest non-tender, Lungs clear, Normal breath sounds Cardiovascular Exam: Normal Cardiovascular: Positive: RRR, No Murmur, Pulses Normal, Brisk Capillary Refill Abdominal Exam: Normal Abdomen Description: Positive: Nontender Musculoskeletal Exam: Normal - gait steady Neurological Exam: Normal - grossly normal Psychological Exam: Normal - conversing easily and appropriately Skin Exam: Normal - no visible or reported rash Course/Dx - Course Course Of Treatment: Influenza nasal swab neg. Has taken azithromycin prior without difficulty. D/w pt. - Differential Dx - Multi-Symptom Provider Diagnoses: URI Discharge - Sign-Out/Discharge Documenting (check all that apply): Patient Departure All imaging exams completed and their final reports reviewed: No Studies - Discharge Plan Condition: Stable Disposition: HOME Prescriptions: Azithromyxin KEZIA (NF) [Z-Kezia (Zithromax) 250 mg tabs #6] 2 tab PO .TODAY, THEN 1 DAILY #6 tab Patient Education Materials: Upper Respiratory Infection (ED) Referrals: Jamari Roman MD [Primary Care Provider] - Additional Instructions: Follow up with your primary care physician, per routine. Seek medical attention for worse or new problems. - Billing Disposition and Condition Condition: STABLE Disposition: Home
== END 2018-04-21 21:10 | disposition home or self-care (01) ==
LOC: UCEAST 18:36
DX: J06.9 Acute upper respiratory infection, unspecified (principal); Z88.0 Allergy status to penicillin; Z88.3 Allergy status to other anti-infective agents
CPT/HCPCS: 99212; G0463

== ENCOUNTER 2018-05-11 18:08 | Emergency (ER) | payer OTHER ==
--- OUTSIDE RECORDS SUMMARY | 2018-05-11 18:13 | XMS REPORT ---
:1965 Author Organization [facility] Address [address] [place] [address] Care Team Providers Name Role Phone Kimberly Newton Unavailable Unavailable PROBLEMS Type Condition ICD9-CM Code [id number] Code Onset Condition SNOMED Code Dates Status Problem Morbid (severe) E66.01 Active 576374327 obesity due to excess calories Problem Elevated R03.0 Active 009808894 blood-pressure reading, without diagnosis of hypertension Problem Leiomyoma of D25.9 Active 36408889 uterus, unspecified Problem Irregular N92.6 Active 76724815 menstruation, unspecified Problem Family history of Z80.0 Active 584278199 malignant neoplasm of digestive organs ALLERGIES No Information ENCOUNTERS Encounter Location Date Diagnosis [address] May, [facility] [address] [place] [id number] Apr, Irregular menstruation , [facility] [address] [place] [address], unspecified N92.6 [place] [id number] [facility] 103 Apr, OBGYN [place] [id number] [facility] 103 Apr, OBGYN [place] [id number] [facility] 103 Apr, OBGYN [place] [id number] [place] [facility] 103 Apr, OBGYN [place] [id number] [facility] 103 Mar, Irregular menstruation, [facility] unspecified N92.6 and [place], [place] [id number] Leiomyoma of uterus, unspecified D25.9 [facility] 103 Mar, Leiomyoma of uterus, [facility] unspecified D25.9 and [place], [place] [id number] Abnormal findings on diagnostic imaging of other specified body structures R93.8 [facility] Mar, [place] [id number] [facility] Jan, Irregular menstruation, [facility] unspecified N92.6 and [place], [place] [id number] Leiomyoma of uterus, unspecified D25.9 [facility] Jan, Leiomyoma of uterus, [facility] unspecified D25.9 and [place], [place] [id number] Abnormal findings on diagnostic imaging of other specified body structures R93.[address] Oct, [facility] [address] [place], [place] [id number] [address] Sep, Encounter for gynecological [facility] [address] [place], examination (general) [place] [id number] (routine) with abnormal findings Z01.411 ; Leiomyoma of uterus, unspecified D25.9 ; Irregular menstruation, unspecified N92.6 ; Encounter for other screening for malignant neoplasm of breast Z12.39 ; Morbid (severe) obesity due to excess calories E66.01 and Elevated blood-pressure reading, without diagnosis of hypertension R03.[address] Jul, Leiomyoma of uterus, [facility] [address] [place], unspecified D25.9 and [place] [id number] Irregular menstruation, unspecified N92.6 [facility] 103 Jul, Leiomyoma of uterus, [facility] unspecified D25.9 and [place], [place] [id number] Irregular menstruation, unspecified N92.6 [facility] Jan, [place] [id number] [facility] 103 Jan, Excessive and frequent OBGYN [facility] menstruation with regular [place], [place] [id number] cycle N92.0 ; Irregular menstruation, unspecified N92.6 and Leiomyoma of uterus, unspecified D25.9 [facility] 103 Jan, Excessive and frequent OBGYN [facility] menstruation with regular [place], [place] [id number] cycle N92.0 ; Irregular menstruation, unspecified N92.6 and Leiomyoma of uterus, unspecified D25.[address] December, Irregular menstruation , [facility] [address] [place] [address], unspecified N92.6 [place] [id number] [address] Sep, Encounter for gynecological [address], examination (general) [place] [id number] (routine) without abnormal findings Z01.419 ; Encounter for screening mammogram for malignant neoplasm of breast Z12.31 ; Body mass index (BMI) 45.0-49.9, adult Z68.42 and Family history of malignant neoplasm of digestive organs Z80.[address] May, [facility] [address], [place] [id number] [address] May, Encounter for gynecological [address], examination (general) [place] [id number] (routine) without abnormal findings Z01.419 ; Encounter for screening mammogram for malignant neoplasm of breast Z12.31 ; Leiomyoma of uterus, unspecified D25.9 and Body mass index (BMI) 45.0-49.9, adult Z68.[address] May, [facility] [address] [place] [address], mammogram for malignant [place] [id number] neoplasm of breast Z12.31 ; Excessive and frequent menstruation with regular cycle N92.0 ; Leiomyoma of uterus, unspecified D25.9 ; Body mass index (BMI) 45.0-49.9, adult Z68.42 and Encounter for gynecological examination (general) (routine) with abnormal findings Z01.411 [facility] 103 Feb, FM HX OVARY MALIGNANCY OBGYN [facility] V16.41 ; FM HX GENITAL [place], [place] [id number] MALIG NEC V16.49 ; Menometrorrhagia 626.2 and VULVAR LESION 624.9 [facility] 103 Feb, UTERINE FIBROIDS- UNSPEC OBGYN [facility] 218.9 [place], [place] [id number] [facility] 103 Feb, OBGYN [place] [id number] [address] Feb, OBGYN Road [address] [place], [place] [id number] [facility] 103 Feb, OBGYN [place] [id number] [address] Jan, VULVAR LESION [address] [place] [id number] [facility] 103 Jan, FM HX OVARY MALIGNANCY OBGYN [facility] V16.41 ; FM HX GENITAL [place], [place] [id number] MALIG NEC V16.49 ; Menometrorrhagia 626.2 and VULVAR LESION 624.9 [facility] 103 Jan, FM HX OVARY MALIGNANCY OBGYN [facility] V16.41 ; FM HX GENITAL [place], [place] [id number] MALIG NEC V16.49 and Menometrorrhagia 626.2 [facility] 103 Jan, FM HX OVARY MALIGNANCY OBGYN [facility] V16.41 ; FM HX GENITAL [place], [place] [id number] MALIG NEC V16.49 and Menometrorrhagia [address]26.[address] Nov, ROUTINE BUTTONHOLE FACER EXAMINATION OBGYN Road [address] [place], V72.31 and PAP SMEAR W/O [place] [id number] BUTTONHOLE FACER EXAM V76.2 [facility] 103 Sep, [place] [id number] [address] Sep, Menorrhagia 626.2 ; OBGYN Road [address] [place], Endometrial polyp 621.0 ; [place] [id number] FM HX OVARY MALIGNANCY V16.41 ; FM HX GENITAL MALIG NEC V16.49 and SCREEN MAMMOGRAM NEC V76.[address] Sep, OBGYN Road [address] [place] [id number] Jun, Menorrhagia 626.2 ; OBGYN Road [address] [place], Endometrial polyp 621.0 ; [place] [id number] FM HX OVARY MALIGNANCY V16.41 ; FM HX GENITAL MALIG NEC V16.49 and Body Mass Index 45.0-49.9, adult V85.42 [facility] [address] [place], May, Medical Center [place] [id number] [address] May, Menorrhagia 626.2 ; OBGYN Road [address] [place] [address], Endometrial polyp 621.0 ; [place] [id number] FM HX OVARY MALIGNANCY V16.41 and FM HX GENITAL MALIG NEC V16.49 [facility]YN 103 Mar, [place] [id number] [address] Mar, Menorrhagia 626.2 ; OBGYN [address] [place] [address], Endometrial polyp 621.0 ; [place] [id number] FM HX OVARY MALIGNANCY V16.41 and FM HX GENITAL MALIG NEC V16.[address] Mar, [facility] [address] [place] [id number] [facility] 103 December, [place], [place] [id number] [facility] 103 Nov, [place] [id number] [address] Nov, Menorrhagia 626.2 ; OBGYN Road [address] [place], Endometrial polyp 621.0 ; [place] [id number] FM HX OVARY MALIGNANCY V16.41 and FM HX GENITAL MALIG NEC V16.49 [place] [facility] 103 Nov, [place] [id number] [place] [facility] 103 Nov, [place] [id number] [place] [facility] 103 Nov, [place] [id number] [place] [facility] [address] [place] [address] Tri[place] Nov, Menorrhagia [address] [place], [place] [id number] [place] [facility] 103 Nov, Menorrhagia 626.2 [place] [id number] [place] [facility] 103 Nov, Menorrhagia 626.2 ; FM HX [facility] OVARY MALIGNANCY V16.41 and [place], [place] [id number] Endometrial polyp 621.0 [place] [facility] 103 Jun, [place] [id number] [place] [facility] [address] [place] [address] [address] Jun, UTERINE FIBROIDS- UNSPEC OBGY Road [address] [place], 218.9 ; FM HX OVARY [place] [id number] MALIGNANCY V16.41 ; FM HX GENITAL MALIG NOS V16.40 and Menorrhagia 626.2 [place] [facility] 103 Jun, [place] [id number] [place] [facility] 103 Jun, [place] [id number] [place] [facility] 103 Jun, [place] [id number] [place] [facility] 103 Jun, [place] [id number] [place] [facility] 103 May, UTERINE FIBROIDS- UNSPEC OBGYN [facility] 218.9 ; FM HX OVARY [place], [place] [id number] MALIGNANCY V16.41 and FM HX GENITAL MALIG NOS V16.40 [place] [facility] 103 May, Enlarged uterus 621.2 and OBGYN [facility] UTERINE FIBROIDS-UNSPEC [place], [place] [id number] 218.9 [facility] 103 Apr, OBGYN [place], [place] [id number] [facility] 103 Apr, UTERINE FIBROIDS- UNSPEC OBGYN [facility] 218.9 [place], [place] [id number] [facility] 103 Mar, OBGYN [place], [place] [id number] IMMUNIZATIONS No Known Immunizations SOCIAL HISTORY Never Assessed REASON FOR REFERRAL FUNCTIONAL STATUS PLAN OF CARE VITAL SIGNS MEDICATIONS Unknown Medications PROCEDURES No Known procedures RESULTS No Results REASON FOR VISIT Re:RE:missing lab results Insurance Providers [employer] Member Patient Patient Patient Patient Patient Subscriber Subscriber Subscriber Group Insurance Plan Plan Plan Plan ID Relationship Address Phone Name Date of ID Name Date of No Type Insurance Insurance Insurance Coverage to Subscriber Address Phone Name Dates Raheel [phone] [place] self Lizzie [id number] [address] [address] MEDICAL (GENERAL) HISTORY Type Description Date Medical [...]
--- OUTSIDE RECORDS SUMMARY | 2018-05-11 18:13 | XMS REPORT ---
:1965 Author Organization [facility] Address [address] [place] [address] Care Team Providers Name Role Phone Kimberly Newton Unavailable Unavailable PROBLEMS Type Condition ICD9-CM Code [id number] Code Onset Condition SNOMED Code Dates Status Problem Morbid (severe) E66.01 Active 907617975 obesity due to excess calories Problem Elevated R03.0 Active 167633257 blood-pressure reading, without diagnosis of hypertension Problem Leiomyoma of D25.9 Active 70943441 uterus, unspecified Problem Irregular N92.6 Active 23129304 menstruation, unspecified Problem Family history of Z80.0 Active 270836014 malignant neoplasm of digestive organs ALLERGIES Substance Reaction Event Type Date Status Dairy hives Drug Allergy Apr, Active penicillin hives Drug Allergy Apr, Active Ceclor hives Drug Allergy Apr, Active Ceftin hives Drug Allergy Apr, Active ENCOUNTERS Encounter Location Date Diagnosis [address] May, [facility] [address] [place] [id number] Apr, Irregular menstruation , [facility] [address] [place], unspecified N92.6 [place] [id number] [facility] 103 Apr, Irregular menstruation, [facility] unspecified N92.6 [place] [id number] [facility] 103 Apr, Irregular menstruation, [facility] unspecified N92.6 ; [place], [place] [id number] Leiomyoma of uterus, unspecified D25.9 and Abnormal findings on diagnostic imaging of other specified body structures R93.8 [facility] 103 Apr, OBGYN [place] [id number] [facility] 103 Apr, O[place] [id number] [facility] 103 Mar, Irregular menstruation, [facility] unspecified N92.6 and [place] [id number] Leiomyoma of uterus, unspecified D25.9 [facility] 103 Mar, Leiomyoma of uterus, [facility] unspecified D25.9 and [place] [id number] Abnormal findings on diagnostic imaging of other specified body structures R93.8 [facility] 103 Mar, [place] [id number] [facility] 103 Jan, Irregular menstruation, [facility] unspecified N92.6 and [place] [id number] Leiomyoma of uterus, unspecified D25.9 [facility] 103 08 Jan, 2018 Leiomyoma of uterus, [facility] unspecified D25.9 and [place] [id number] Abnormal findings on diagnostic imaging of other specified body structures R93.[address] Oct, OBGYN Road [address] [place], [place] [id number] [address] Sep, Encounter for gynecological [facility] [address] [place], [facility] (general) [place] [id number] (routine) with abnormal findings Z01.411 ; Leiomyoma of uterus, unspecified D25.9 ; Irregular menstruation, unspecified N92.6 ; Encounter for other screening for malignant neoplasm of breast Z12.39 ; Morbid (severe) obesity due to excess calories E66.01 and Elevated blood-pressure reading, without diagnosis of hypertension R03.[address] Jul, Leiomyoma of uterus, [facility] [address] [place], unspecified D25.9 and [place] [id number] Irregular menstruation, unspecified N92.6 [facility] 103 Jul, Leiomyoma of uterus, [facility] unspecified D25.9 and [place] [id number] Irregular menstruation, unspecified N92.6 [facility] 103 Jan, OBGYN [facility] [address] [place] [id number] [place] [facility] 103 Jan, Excessive and frequent OBGYN [facility] menstruation with regular [place] [id number] cycle N92.0 ; Irregular menstruation, unspecified N92.6 and Leiomyoma of uterus, unspecified D25.9 [facility] 103 Jan, Excessive and frequent OBGYN [facility] menstruation with regular [place], [place] [id number] cycle N92.0 ; Irregular menstruation, unspecified N92.6 and Leiomyoma of uterus, unspecified D25.[address] December, Irregular menstruation , OBGYN Road [address] [place] [address], unspecified N92.6 [place] [id number] [address] Sep, Encounter for gynecological OBN Road [address] [place] [address], examination (general) [place] [id number] (routine) without abnormal findings Z01.419 ; Encounter for screening mammogram for malignant neoplasm of breast Z12.31 ; Body mass index (BMI) 45.0-49.9, adult Z68.42 and Family history of malignant neoplasm of digestive organs Z80.[address] May, OBGYN Road [address] [place], [place] [id number] [address] May, Encounter for gynecological OBN [address] [place] [address], examination (general) [place] [id number] (routine) without abnormal findings Z01.419 ; Encounter for screening mammogram for malignant neoplasm of breast Z12.31 ; Leiomyoma of uterus, unspecified D25.9 and Body mass index (BMI) 45.0-49.9, adult Z68.[address] 09 May, 2015 Encounter for screening [facility] [address] [place], mammogram for malignant [place] [id number] neoplasm of breast Z12.31 ; Excessive and frequent menstruation with regular cycle N92.0 ; Leiomyoma of uterus, unspecified D25.9 ; Body mass index (BMI) 45.0-49.9, adult Z68.42 and Encounter for gynecological examination (general) (routine) with abnormal findings Z01.411 [place] [facility] 103 Feb, FM HX OVARY MALIGNANCY OBN [facility] V16.41 ; FM HX GENITAL [place], [place] [id number] MALIG NEC V16.49 ; Menometrorrhagia 626.2 and VULVAR LESION 624.9 [place] [facility] 103 Feb, UTERINE FIBROIDS- UNSPEC [facility] 218.9 [place] [id number] [place] [facility] 103 Feb, [place] [id number] [facility] Feb, [facility] [address] [place], [place] [id number] [place] [facility] 103 Feb, [place] [id number] [facility] Jan, VULVAR LESION 624.9 [facility] [address] [place], [place] [id number] [place] [facility] 103 Jan, FM HX OVARY MALIGNANCY OBN [facility] V16.41 ; FM HX GENITAL [place] [id number] MALIG NEC V16.49 ; Menometrorrhagia 626.2 and VULVAR LESION 624.9 [place] [facility] 103 Jan, FM HX OVARY MALIGNANCY OBGYN [facility] V16.41 ; FM HX GENITAL [place], [place] [id number] MALIG NEC V16.49 and Menometrorrhagia 626.2 [place] [facility] 103 Jan, FM HX OVARY MALIGNANCY OBGYN [facility] V16.41 ; FM HX GENITAL [place] [id number] MALIG NEC V16.49 and Menometrorrhagia 626.[address] Nov, ROUTINE ASSOCIATE DIRECTOR OF NURSING EXAMINATION [facility] [address] [place] [address], V72.31 and PAP SMEAR W/O [place] [id number] ASSOCIATE DIRECTOR OF NURSING EXAM V76.2 [facility] 103 Sep, [place] [id number] [address] Sep, Menorrhagia 626.2 ; OBGYN Road [address] [place] [address], Endometrial polyp 621.0 ; [place] [id number] FM HX OVARY MALIGNANCY V16.41 ; FM HX GENITAL MALIG NEC V16.49 and SCREEN MAMMOGRAM NEC V76.[address] Sep, [address] [id number] [address] Jun, Menorrhagia 626.2 ; OBGYN Road [address] [place] [address], Endometrial polyp 621.0 ; [place] [id number] FM HX OVARY MALIGNANCY V16.41 ; FM HX GENITAL MALIG NEC V16.49 and Body Mass Index 45.0-49.9, adult V85.42 [facility] [address] [place], May, Medical [facility] [id number] [address] May, Menorrhagia 626.2 ; OBGYN Road [address], Endometrial polyp 621.0 ; [place] [id number] FM HX OVARY MALIGNANCY V16.41 and FM HX GENITAL MALIG NEC V16.49 [facility]YN 103 Mar, OBN [place] [id number] [address] Mar, Menorrhagia 626.2 ; [facility] [address], Endometrial polyp 621.0 ; [place] [id number] FM HX OVARY MALIGNANCY V16.41 and FM HX GENITAL MALIG NEC V16.[address] Mar, OBN [address] [place] [id number] [place] [facility] 103 December, [place] [id number] [place] [facility] 103 Nov, [place] [id number] [place] [facility] [address] Nov, Menorrhagia 626.2 ; OBGYN [address] [place], Endometrial polyp 621.0 ; [place] [id number] FM HX OVARY MALIGNANCY V16.41 and FM HX GENITAL MALIG NEC V16.49 [place] [facility] 103 Nov, [place] [id number] [place] [facility] 103 Nov, [place], [place] [id number] [place] [facility] 103 Nov, [place], [place] [id number] [place] [facility] [address] Nov, Menorrhagia [address] [place], [place] [id number] [place] [facility] 103 Nov, Menorrhagia 626.2 [place] [id number] [place] [facility] 103 Nov, Menorrhagia 626.2 ; FM HX [facility] OVARY MALIGNANCY V16.41 and [place], [place] [id number] Endometrial polyp 621.0 [place] [facility] 103 Jun, [place] [id number] [place] [facility] [address] Jun, UTERINE FIBROIDS- UNSPEC OBGYN Road [address] [place], 218.9 ; FM HX OVARY [place] [id number] MALIGNANCY V16.41 ; FM HX GENITAL MALIG NOS V16.40 and Menorrhagia 626.2 [place] [facility] 103 Jun, [place], [place] [id number] [place] [facility] 103 23 Nov, 2012 OBGYN [place] [id number] [place] [facility] 103 Jun, O[place] [id number] [place] [facility] 103 Jun, O[place] [id number] [place] [facility] 103 May, UTERINE FIBROIDS- UNSPEC OBGYN [facility] 218.9 ; FM HX OVARY [place] [id number] MALIGNANCY V16.41 and FM HX GENITAL MALIG NOS V16.40 [place] [facility] 103 May, Enlarged uterus 621.2 and OBGYN [facility] UTERINE FIBROIDS-UNSPEC [place] [id number] 218.9 [place] [facility] 103 Apr, [place] [id number] [place] [facility] 103 Apr, UTERINE FIBROIDS- UNSPEC [facility] 218.9 [place] [id number] [place] [facility] 103 Mar, [place] [id number] IMMUNIZATIONS No Known Immunizations SOCIAL HISTORY Never Assessed REASON FOR REFERRAL FUNCTIONAL STATUS PLAN OF CARE Activity Details Follow Up As scheduled Reason: Pending Test endometrial biopsy VITAL SIGNS Height 64.5 in 2018-05-08 Weight 278 lbs 2018-05-08 BMI 46.98 kg/m2 2018-05-08 Blood pressure systolic 150 mm Hg 2018-05-08 Blood pressure diastolic 84 mm Hg 2018-05-08 MEDICATIONS Medication Instructions Dosage Frequency Start End Date Duration Status Date Synthroid 125mcg 1 tab 24h Active Zoloft 100 mg orally qd 1 tab 24h Active niacin 500 mg orally once daily 1 tab(s) 24h Active lisinopril 10 mg orally once a day 1 tab(s) 24h Active Catherine 3 1 tab 24h Active Klonopin 0.5 mg orally PRN 1 tab(s) Active cranberry Plus 1 tab 24h Active 8400 misoprostol 200 orally 1 tab with 1 tab(s) Mar, 1 day Active mcg dinner, 1 tab 2018 before bed, 1 tab morning of procedure PROCEDURES Procedure Date Ordered Result Body Site BIOPSY OF UTERUS LINING May 08, 2018 RESULTS No Results REASON FOR VISIT EMB Insurance Providers [facility] Health Member Patient Patient Patient Patient Patient Subscriber Subscriber Subscriber Group Insurance Plan Plan Plan Plan ID Relationship Address Phone Name Date of ID Name Date of No Type Insurance Insurance Insurance Coverage to Subscriber Address Phone Name Dates Raheel [phone] [place] self Lizzie [id number] [address] [address] MEDICAL (GENERAL) HISTORY Type Description Date Medical [...]
--- OUTSIDE RECORDS SUMMARY | 2018-05-11 18:13 | XMS REPORT ---
:1965 Author Organization [facility] Address [address] [place] [address] Care Team Providers Name Role Phone Caty Diehl Unavailable Unavailable PROBLEMS Type Condition ICD9-CM Code BLS21-AL Code Onset Condition SNOMED Code Dates Status Problem Morbid (severe) E66.01 Active 420746584 obesity due to excess calories Problem Elevated R03.0 Active 651616337 blood-pressure reading, without diagnosis of hypertension Problem Leiomyoma of D25.9 Active 12210586 uterus, unspecified Problem Irregular N92.6 Active 52977228 menstruation, unspecified Problem Family history of Z80.0 Active 486852780 malignant neoplasm of digestive organs ALLERGIES No Information ENCOUNTERS Encounter Location Date Diagnosis [address] May, [facility] [address] [place] [id number] Apr, Irregular menstruation , [facility] [address] [place] [address], unspecified N92[id number] [facility] Apr, Irregular menstruation, [facility] unspecified N92.6 [place], [place] [id number] [facility] 103 Apr, Irregular menstruation, [facility] unspecified N92.6 ; [place], [place] [id number] Leiomyoma of uterus, unspecified D25.9 and Abnormal findings on diagnostic imaging of other specified body structures R93.8 [facility] 103 Apr, [place], [place] [id number] [facility] 103 Apr, [place] [id number] [facility] 103 Mar, Irregular menstruation, [facility] unspecified N92.6 and [place], [place] [id number] Leiomyoma of uterus, unspecified D25.9 [facility] 103 Mar, [facility]iomyoma of uterus, [facility] unspecified D25.9 and [place], [place] [id number] Abnormal findings on diagnostic imaging of other specified body structures R93.8 [facility] Mar, [place] [id number] [facility] Jan, Irregular menstruation, [facility] unspecified N92.6 and [place], [place] [id number] Leiomyoma of uterus, unspecified D25.9 [facility] Jan, Leiomyoma of uterus, [facility] unspecified D25.9 and [place], [place] [id number] Abnormal findings on diagnostic imaging of other specified body structures R93.[address] Oct, [facility] [address] [place], [place] [id number] [address] Sep, [facility] [address] [place], [facility] (general[facility] [place] [id number] (routine) with abnormal findings Z01.411 ; Leiomyoma of uterus, unspecified D25.9 ; Irregular menstruation, unspecified N92.6 ; Encounter for other screening for malignant neoplasm of breast Z12.39 ; Morbid (severe) obesity due to excess calories E66.01 and Elevated blood-pressure reading, without diagnosis of hypertension R03.[address] Jul, Leiomyoma of uterus, [facility] [address] [place], unspecified D25.9 and [place] [id number] Irregular menstruation, unspecified N92.6 [facility] Jul, [facility]iomyoma of uterus, [facility] unspecified D25.9 and [place] [id number] Irregular menstruation, unspecified N92.6 [facility] 103 Jan, OBGYN [facility] [address] [place], [place] [id number] [facility] 103 Jan, [facility] with regular [place] [id number] cycle N92.0 ; Irregular menstruation, unspecified N92.6 and Leiomyoma of uterus, unspecified D25.9 [facility] 103 Jan, Excessive and frequent OBGYN [facility] menstruation with regular [place], [place] [id number] cycle N92.0 ; Irregular menstruation, unspecified N92.6 and Leiomyoma of uterus, unspecified D25.[address] December, Irregular menstruation , OBGYN [address] [place] [address], unspecified N92.[address] [place] [id number] Sep, Encounter for gynecological OBGYN [address] [place], examination (general) [place] [id number] (routine) without abnormal findings Z01.419 ; Encounter for screening mammogram for malignant neoplasm of breast Z12.31 ; Body mass index (BMI) 45.0-49.9, adult Z68.42 and Family history of malignant neoplasm of digestive organs Z80.[address] May, OBGYN [address] [place], [place] [id number] [address] May, Encounter for gynecological OBGYN [address] [place], examination (general) [place] [id number] (routine) without abnormal findings Z01.419 ; Encounter for screening mammogram for malignant neoplasm of breast Z12.31 ; Leiomyoma of uterus, unspecified D25.9 and Body mass index (BMI) 45.0-49.9, adult Z68.[address] May, Encounter for screening OBGYN [address] [place], mammogram for malignant [place] [id number] neoplasm of breast Z12.31 ; Excessive and frequent menstruation with regular cycle N92.0 ; Leiomyoma of uterus, unspecified D25.9 ; Body mass index (BMI) 45.0-49.9, adult Z68.42 and Encounter for gynecological examination (general) (routine) with abnormal findings Z01.411 [facility] 103 Feb, FM HX OVARY MALIGNANCY OBN [facility] V16.41 ; FM HX GENITAL [place], [place] [id number] MALIG NEC V16.49 ; Menometrorrhagia 626.2 and VULVAR LESION 624.9 [facility] 103 Feb, UTERINE FIBROIDS- UNSPEC [facility] 218.[address] [place] [id number] [facility] 103 Feb, [place] [id number] [address] Feb, [facility] [address] [place] [id number] [facility] 103 Feb, [place] [id number] [address] Jan, VULVAR LESION 624.[address] [facility] [address] [place], [place] [id number] [facility] 103 Jan, FM HX OVARY MALIGNANCY [facility] V16.41 ; FM HX GENITAL [place], [place] [id number] MALIG NEC V16.49 ; Menometrorrhagia 626.2 and VULVAR LESION 624.9 [facility] 103 Jan, FM HX OVARY MALIGNANCY [facility] V16.41 ; FM HX GENITAL [place], [place] [id number] MALIG NEC V16.49 and Menometrorrhagia 626.2 [place] [facility] 103 Jan, FM HX OVARY MALIGNANCY OBN [facility] V16.41 ; FM HX GENITAL [place], [place] [id number] MALIG NEC V16.49 and Menometrorrhagia 626.2 [facility] [address] [place] [address] Nov, ROUTINE HAIR BALER EXAMINATION OBGYN Road [address] [place] [address], V72.31 and PAP SMEAR W/O [place] [id number] HAIR BALER EXAM V76.2 [facility] 103 Sep, [place] [id number] [address] Sep, Menorrhagia 626.2 ; OBGYN Road [address] [place] [address], Endometrial polyp 621.0 ; [place] [id number] FM HX OVARY MALIGNANCY V16.41 ; FM HX GENITAL MALIG NEC V16.49 and SCREEN MAMMOGRAM NEC V76.[address] Sep, OBGYN Road [address] [place] [id number] Jun, Menorrhagia 626.2 ; OBGYN [address] [place] [address], Endometrial polyp 621.0 ; [place] [id number] FM HX OVARY MALIGNANCY V16.41 ; FM HX GENITAL MALIG NEC V16.49 and Body Mass Index 45.0-49.9, adult V85.42 [facility] [address] [place], May, Medical [place] [id number] [address] May, Menorrhagia 626.2 ; OBGYN Road [address] [place] [address], Endometrial polyp 621.0 ; [place] [id number] FM HX OVARY MALIGNANCY V16.41 and FM HX GENITAL MALIG NEC V16.49 [facility] 103 Mar, [place] [id number] [address] Mar, Menorrhagia 626.2 ; OBGYN Road [address] [place], Endometrial polyp 621.0 ; [place] [id number] FM HX OVARY MALIGNANCY V16.41 and FM HX GENITAL MALIG NEC V16.[address] Mar, [facility] Road [address] [place] [id number] [facility] 103 December, [place] [id number] [facility] 103 Nov, [place] [id number] [place] [facility] [address] [place] [address] [facility] Nov, Menorrhagia 626.2 ; OBGYN [address] [place], Endometrial polyp 621.0 ; [place] [id number] FM HX OVARY MALIGNANCY V16.41 and FM HX GENITAL MALIG NEC V16.49 [place] [facility] 103 Nov, OBGYN [place] [id number] [place] [facility] 103 Nov, [place] [id number] [place] [facility] 103 Nov, [place] [id number] [place] [facility] [address] [place] [address] Nov, Menorrhagia 626.2 [facility] [address] [place] [id number] [place] [facility] 103 Nov, Menorrhagia 626.2 OBGYN [place] [id number] [place] [facility] 103 Nov, Menorrhagia 626.2 ; FM HX [facility] OVARY MALIGNANCY V16.41 and [place], [place] [id number] Endometrial polyp 621.0 [place] [facility] 103 Jun, [place]BG[place] [id number] [place] [facility] [address] [place] [address] Jun, UTERINE FIBROIDS- UNSPEC OBGY Road [address] [place] [address], 218.9 ; [place] H[place] OVARY [place] [id number] MALIGNANCY V16.41 ; FM HX GENITAL MALIG NOS V16.40 and Menorrhagia 626.2 [place] [facility] 103 Jun, [place] [id number] [place] [facility] 103 Jun, [place] [id number] [place] [facility] 103 Jun, OBG[place] [id number] [place] [facility] 103 Jun, OBGYN [place] [id number] [place] [facility] 103 May, UTERINE FIBROIDS- UNSPEC OBGYN [facility] 218.9 ; FM HX OVARY [place], [place] [id number] MALIGNANCY V16.41 and FM HX GENITAL MALIG NOS V16.40 [place] [facility] 103 May, Enlarged uterus 621.2 and OBGYN [facility] UTERINE FIBROIDS-UNSPEC [place], [place] [id number] 218.9 [place] [facility] 103 Apr, OBGYN [place], [place] [id number] [place] [facility] 103 Apr, UTERINE FIBROIDS- UNSPEC OBGYN [facility] 218.9 [place], [place] [id number] [place] [facility] 103 Mar, OBGYN [place], [place] [id number] IMMUNIZATIONS No Known Immunizations SOCIAL HISTORY Never Assessed REASON FOR REFERRAL FUNCTIONAL STATUS PLAN OF CARE Activity Details Follow Up As scheduled Reason: VITAL SIGNS MEDICATIONS Unknown Medications PROCEDURES No Known procedures RESULTS No Results REASON FOR VISIT [employer] Insurance Providers [facility] Member Patient Patient Patient Patient Patient Subscriber Subscriber Subscriber Group Insurance Plan Plan Plan Plan ID Relationship Address Phone Name Date of ID Name Date of No Type Insurance Insurance Insurance Coverage to Subscriber Address Phone Name Dates [place] [phone] [place] self Lizzie [id number] [address] [address] MEDICAL (GENERAL) HISTORY Type Description Date Medical [...]
--- OUTSIDE RECORDS SUMMARY | 2018-05-11 18:13 | XMS REPORT ---
:1965 Author Name sound, ultra Care Team Providers Name Role Phone sound, ultra Unavailable Unavailable PROBLEMS Type Condition ICD9-CM Code XCN25-LX Code Onset Condition SNOMED Code Dates Status Problem Morbid (severe) E66.01 Active 883702200 obesity due to excess calories Problem Elevated R03.0 Active 045285050 blood-pressure reading, without diagnosis of hypertension Problem Leiomyoma of D25.9 Active 21772528 uterus, unspecified Problem Irregular N92.6 Active [id number] menstruation, unspecified Problem Family history of Z80.0 Active 881046256 malignant neoplasm of digestive organs ALLERGIES No Information ENCOUNTERS Encounter Location Date Diagnosis [address] May, [facility] [address] [place], [place] [id number] [address] Apr, Irregular menstruation , [facility] [address] [place], unspecified N92.6 [place] [id number] [facility] Apr, Irregular menstruation, [facility] unspecified N92.6 [place], [place] [id number] [facility] Apr, Irregular menstruation, [facility] unspecified N92.6 ; [place], [place] [id number] Leiomyoma of uterus, unspecified D25.9 and Abnormal findings on diagnostic imaging of other specified body structures R93.8 [facility] Apr, [place] [id number] [facility] Apr, [place] [id number] [facility] Mar, Irregular menstruation, [facility] unspecified N92.6 and [place], [place] [id number] Leiomyoma of uterus, unspecified D25.9 [facility] Mar, Leiomyoma of uterus, [facility] unspecified D25.9 and [place], [place] [id number] Abnormal findings on diagnostic imaging of other specified body structures R93.8 [facility] Mar, [place] [id number] [facility] Jan, Irregular menstruation, [facility] unspecified N92.6 and [place], [place] [id number] Leiomyoma of uterus, unspecified D25.9 [facility] Jan, Leiomyoma of uterus, [facility] unspecified D25.9 and [place], [place] [id number] Abnormal findings on diagnostic imaging of other specified body structures R93.[address] Oct, [facility] [address] [place], [place] [id number] [address] Sep, Encounter for gynecological [facility] [address] [place], examination (general) [place] [id number] (routine) with abnormal findings Z01.411 ; Leiomyoma of uterus, unspecified D25.9 ; Irregular menstruation, unspecified N92.6 ; Encounter for other screening for malignant neoplasm of breast Z12.39 ; Morbid (severe) obesity due to excess calories E66.01 and Elevated blood-pressure reading, without diagnosis of hypertension R03.[address] Jul, Leiomyoma of uterus, [facility] [address] [place], unspecified D25.9 and [place] [id number] Irregular menstruation, unspecified N92.6 [facility] Jul, Leiomyoma of uterus, [facility] unspecified D25.9 and [place], [place] [id number] Irregular menstruation, unspecified N92.6 [facility] Jan, [place] [id number] [facility] Jan, Excessive and frequent OBGYN [facility] menstruation with regular [place], [place] [id number] cycle N92.0 ; Irregular menstruation, unspecified N92.6 and Leiomyoma of uterus, unspecified D25.9 [facility] Jan, Excessive and frequent OBGYN [facility] menstruation with regular [place], [place] [id number] cycle N92.0 ; Irregular menstruation, unspecified N92.6 and Leiomyoma of uterus, unspecified D25.[address] December, Irregular menstruation , [address] [place] [address], unspecified N92.[address] [place] [id number] [address] Sep, Encounter for gynecological [address] [place], examination (general) [place] [id number] (routine) without abnormal findings Z01.419 ; Encounter for screening mammogram for malignant neoplasm of breast Z12.31 ; Body mass index (BMI) 45.0-49.9, adult Z68.42 and Family history of malignant neoplasm of digestive organs Z80.[address] May, [address] [place] [id number] May, Encounter for gynecological [facility] [address] [place] [address], examination (general) [place] [id number] (routine) without abnormal findings Z01.419 ; Encounter for screening mammogram for malignant neoplasm of breast Z12.31 ; Leiomyoma of uterus, unspecified D25.9 and Body mass index (BMI) 45.0-49.9, adult Z68.[address] May, Encounter for screening [facility] [address] [place], mammogram for malignant [place] [id number] neoplasm of breast Z12.31 ; Excessive and frequent menstruation with regular cycle N92.0 ; Leiomyoma of uterus, unspecified D25.9 ; Body mass index (BMI) 45.0-49.9, adult Z68.42 and Encounter for gynecological examination (general) (routine) with abnormal findings Z01.411 [place] [facility] Feb, FM HX OVARY MALIGNANCY OBGYN [facility] V16.41 ; FM HX GENITAL [place], [place] [id number] MALIG NEC V16.49 ; Menometrorrhagia 626.2 and VULVAR LESION 624.9 [place] [facility] Feb, UTERINE FIBROIDS- UNSPEC OBGYN [facility] 218.9 [place], [place] [id number] [place] [facility] Feb, O[place] [id number] [facility] [address] Feb, [address] [place], [place] [id number] [place] [facility] Feb, [place] [id number] [address] Jan, VULVAR LESION [address] [place], [place] [id number] [facility] Jan, FM HX OVARY MALIGNANCY OBGYN [facility] V16.41 ; FM HX GENITAL [place], [place] [id number] MALIG NEC V16.49 ; Menometrorrhagia 626.2 and VULVAR LESION 624.9 [facility] Jan, FM HX OVARY MALIGNANCY OBGYN [facility] V16.41 ; FM HX GENITAL [place], [place] [id number] MALIG NEC V16.49 and Menometrorrhagia 626.2 [place] [facility] Jan, FM HX OVARY MALIGNANCY OBGYN [facility] V16.41 ; FM HX GENITAL [place], [place] [id number] MALIG NEC V16.49 and Menometrorrhagia 626.[address] [facility] Nov, ROUTINE VALUE STREAM COACH EXAMINATION [facility] [address] [place], V72.31 and PAP SMEAR W/O [place] [id number] VALUE STREAM COACH EXAM V76.2 [facility] Sep, [place] [id number] [address] Sep, Menorrhagia 626.2 ; [address] [place], Endometrial polyp 621.0 ; [place] [id number] FM HX OVARY MALIGNANCY V16.41 ; FM HX GENITAL MALIG NEC V16.49 and SCREEN MAMMOGRAM NEC V76.[address] Sep, OBGYN [address] [place] [id number] Jun, Menorrhagia 626.2 ; [address] [place] [address], Endometrial polyp 621.0 ; [place] [id number] FM HX OVARY MALIGNANCY V16.41 ; FM HX GENITAL MALIG NEC V16.49 and Body Mass Index 45.0-49.9, adult V85.42 [facility] [address] [place], May, Medical [facility] [id number] [address] May, Menorrhagia 626.2 ; [address]BG[address] [place] [address], Endometrial polyp 621.0 ; [place] [id number] FM HX OVARY MALIGNANCY V16.41 and FM HX GENITAL MALIG NEC V16.49 [facility] Mar, [place] [id number] [address] Mar, Menorrhagia 626.2 ; [address]BGYN [address] [place] [address], Endometrial polyp 621.0 ; [place] [id number] FM HX OVARY MALIGNANCY V16.41 and FM HX GENITAL MALIG NEC V16.[address] Mar, OBGY [address] [place] [id number] [facility] December, [place] [id number] [facility] Nov, [place] [id number] [place] [facility] [address] Nov, Menorrhagia 626.2 ; [address] [place], Endometrial polyp 621.0 ; [place] [id number] FM HX OVARY MALIGNANCY V16.41 and FM HX GENITAL MALIG NEC V16.49 [place] [facility] Nov, [place] [id number] [place] [facility] Nov, [place] [id number] [place] [facility] Nov, [place] [id number] [place] [facility] [address] [place] [address] [facility] Nov, Menorrhagia 626.2 [facility] [address] [place], [place] [id number] [place] [facility] Nov, Menorrhagia 626.2 [place] [id number] [place] [facility] Nov, Menorrhagia 626.2 ; FM HX [facility] OVARY MALIGNANCY V16.41 and [place], [place] [id number] Endometrial polyp 621.0 [place] [facility] Jun, [place] [id number] [place] [facility] [address] [facility] Jun, UTERINE FIBROIDS- UNSPEC OBG[address] [place], 218.9 ; FM HX OVARY [place] [id number] MALIGNANCY V16.41 ; FM HX GENITAL MALIG NOS V16.40 and Menorrhagia 626.2 [place] [facility] Jun, [place] [id number] [place] [facility] Jun, [place] [id number] [place] [facility] Jun, [place] [id number] [place] [facility] Jun, [place] [id number] [place] [facility] May, UTERINE FIBROIDS- UNSPEC OBGYN [facility] 218.9 ; FM HX OVARY [place], [place] [id number] MALIGNANCY V16.41 and FM HX GENITAL MALIG NOS V16.40 [place] [facility] May, Enlarged uterus 621.2 and OBGYN [facility] UTERINE FIBROIDS-UNSPEC [place] [id number] 218.9 [place] [facility] Apr, [place] [id number] [place] [facility] Apr, UTERINE FIBROIDS- UNSPEC OBGYN [facility] 218.9 [place] [id number] [place] [facility] Mar, [place] [id number] IMMUNIZATIONS No Known Immunizations SOCIAL HISTORY Never Assessed REASON FOR REFERRAL FUNCTIONAL STATUS PLAN OF CARE VITAL SIGNS MEDICATIONS Unknown Medications PROCEDURES Procedure Date Ordered Result Body Site URINE TEST May 07, 2018 TRANSVAGINAL US, NON-OB May 07, 2018 3D rendering requiring imaging post processing May 07, 2018 ECHO EXAM, UTERUS May 07, 2018 CATHETER FOR HYSTEROGRAPHY May 07, 2018 RESULTS Name Result Date Reference Range URINE TEST Hysterosonogram REASON FOR VISIT Hystero Insurance Providers [facility] Member Patient Patient Patient Patient Patient Subscriber Subscriber Subscriber Group Insurance Plan Plan Plan Plan ID Relationship Address Phone Name Date of ID Name Date of No Type Insurance Insurance Insurance Coverage to Subscriber Address Phone Name Dates [place] [phone] [place] self Lizzie [id number] [address] [address] MEDICAL (GENERAL) HISTORY Type Description Date Medical [...]
--- OUTSIDE RECORDS SUMMARY | 2018-05-11 18:13 | XMS REPORT ---
:1965 Author Organization [facility] Address [address] [place] [address] Care Team Providers Name Role Phone Kimberly Newton Unavailable Unavailable PROBLEMS Type Condition ICD9-CM Code VPW62-CK Code Onset Condition SNOMED Code Dates Status Problem Morbid (severe) E66.01 Active 827389272 obesity due to excess calories Problem Elevated R03.0 Active [id number] blood-pressure reading, without diagnosis of hypertension Problem Leiomyoma of D25.9 Active 07839244 uterus, unspecified Problem Irregular N92.6 Active 12419989 menstruation, unspecified Problem Family history of Z80.0 Active [id number] malignant neoplasm of digestive organs ALLERGIES No Information ENCOUNTERS Encounter Location Date Diagnosis [address] May, [facility] [address] [place] [id number] Apr, Irregular menstruation , [facility] [address] [place] [address], [address] N92[address] [place] [id number] [facility] Apr, OBGYN [place] [id number] [facility] Apr, [place] [id number] [facility] Apr, [place] [id number] [place] [facility] 103 Apr, OBG[place], [place] [id number] [facility] Mar, Irregular menstruation, [facility] unspecified N92.6 and [place], [place] [id number] Leiomyoma of uterus, unspecified D25.9 [facility] 103 Mar, Leiomyoma of uterus, [facility] unspecified D25.9 and [place], [place] [id number] Abnormal findings on diagnostic imaging of other specified body structures R93.8 [facility] Mar, [place] [id number] [facility] Jan, Irregular menstruation, [facility] unspecified N92.6 and [place], [place] [id number] Leiomyoma of uterus, unspecified D25.9 [facility] Jan, Leiomyoma of uterus, [facility] unspecified D25.9 and [place], [place] [id number] Abnormal findings on diagnostic imaging of other specified body structures R93.[address] Oct, [facility] [address] [place], [place] [id number] [address] Sep, Encounter for gynecological [facility] [address] [place], examination (general) [place] [id number] (routine) with abnormal findings Z01.411 ; Leiomyoma of uterus, unspecified D25.9 ; Irregular menstruation, unspecified N92.6 ; Encounter for other screening for malignant neoplasm of breast Z12.39 ; Morbid (severe) obesity due to excess calories E66.01 and Elevated blood-pressure reading, without diagnosis of hypertension R03.[address] Jul, Leiomyoma of uterus, [facility] [address] [place], unspecified D25.9 and [place] [id number] Irregular menstruation, unspecified N92.6 [facility] Jul, Leiomyoma of uterus, [facility] unspecified D25.9 and [place], [place] [id number] Irregular menstruation, unspecified N92.6 [facility] Jan, [place] [id number] [facility] 103 Jan, Excessive and frequent OBGYN [facility] menstruation with regular [place], [place] [id number] cycle N92.0 ; Irregular menstruation, unspecified N92.6 and Leiomyoma of uterus, unspecified D25.9 [facility] 103 Jan, Excessive and frequent OBGYN [facility] menstruation with regular [place], [place] [id number] cycle N92.0 ; Irregular menstruation, unspecified N92.6 and Leiomyoma of uterus, unspecified D25.[address] December, Irregular menstruation , [facility] [address] [place] [address], unspecified N92.6 [place] [id number] [address] Sep, Encounter for gynecological [address], examination (general) [place] [id number] (routine) without abnormal findings Z01.419 ; Encounter for screening mammogram for malignant neoplasm of breast Z12.31 ; Body mass index (BMI) 45.0-49.9, adult Z68.42 and Family history of malignant neoplasm of digestive organs Z80.[address] May, [facility] [address], [place] [id number] [address] May, Encounter for gynecological [address], examination (general) [place] [id number] (routine) without abnormal findings Z01.419 ; Encounter for screening mammogram for malignant neoplasm of breast Z12.31 ; Leiomyoma of uterus, unspecified D25.9 and Body mass index (BMI) 45.0-49.9, adult Z68.[address] May, Encounter for screening [facility] [address] [place] [address], mammogram for malignant [place] [id number] neoplasm of breast Z12.31 ; Excessive and frequent menstruation with regular cycle N92.0 ; Leiomyoma of uterus, unspecified D25.9 ; Body mass index (BMI) 45.0-49.9, adult Z68.42 and Encounter for gynecological examination (general) (routine) with abnormal findings Z01.411 [facility] Feb, FM HX OVARY MALIGNANCY OBGYN [facility] V16.41 ; FM HX GENITAL [place], [place] [id number] MALIG NEC V16.49 ; Menometrorrhagia 626.2 and VULVAR LESION 624.9 [facility] 103 Feb, UTERINE FIBROIDS- UNSPEC OBGYN [facility] 218.9 [place] [id number] [facility] 103 Feb, OBGYN [place], [place] [id number] [address] Feb, OBGYN Road [address] [place], [place] [id number] [facility] 103 Feb, OBGYN [place] [id number] [address] Jan, VULVAR LESION [address] [place] [id number] [facility] 103 Jan, FM HX OVARY MALIGNANCY OBGYN [facility] V16.41 ; FM HX GENITAL [place], [place] [id number] MALIG NEC V16.49 ; Menometrorrhagia 626.2 and VULVAR LESION 624.9 [facility] 103 Jan, FM HX OVARY MALIGNANCY OBGYN [facility] V16.41 ; FM HX GENITAL [place], [place] [id number] MALIG NEC V16.49 and Menometrorrhagia 626.2 [facility] 103 Jan, FM HX OVARY MALIGNANCY OBGYN [facility] V16.41 ; FM HX GENITAL [place], [place] [id number] MALIG NEC V16.49 and Menometrorrhagia 626.[address] Nov, ROUTINE SECRETARY BOOKKEEPER EXAMINATION OBGYN [address] [place], V72.31 and PAP SMEAR W/O [place] [id number] SECRETARY BOOKKEEPER EXAM V76.2 [facility] 103 Sep, [place] [id number] [address] Sep, Menorrhagia 626.2 ; OBGYN Road [address] [place], Endometrial polyp 621.0 ; [place] [id number] FM HX OVARY MALIGNANCY V16.41 ; FM HX GENITAL MALIG NEC V16.49 and SCREEN MAMMOGRAM NEC V76.[address] Sep, OBGYN Road [address] [place] [id number] [facility] Jun, Menorrhagia 626.2 ; OBGYN Road [address] [place], Endometrial polyp 621.0 ; [place] [id number] FM HX OVARY MALIGNANCY V16.41 ; FM HX GENITAL MALIG NEC V16.49 and Body Mass Index 45.0-49.9, adult V85.42 [facility] [address] [place], May, Medical Center [place] [id number] [address] May, Menorrhagia 626.2 ; OBGYN [address] [place] [address], Endometrial polyp 621.0 ; [place] [id number] FM HX OVARY MALIGNANCY V16.41 and FM HX GENITAL MALIG NEC V16.49 [facility] 103 Mar, [place] [id number] [address] Mar, Menorrhagia 626.2 ; OBGYN Road [address] [place] [address], Endometrial polyp 621.0 ; [place] [id number] FM HX OVARY MALIGNANCY V16.41 and FM HX GENITAL MALIG NEC V16.[address] Mar, [facility] [address] [place] [id number] [facility] 103 December, [place], [place] [id number] [facility] 103 Nov, [place] [id number] [address] Nov, Menorrhagia 626.2 ; OBGYN [address] [place], Endometrial polyp 621.0 ; [place] [id number] FM HX OVARY MALIGNANCY V16.41 and FM HX GENITAL MALIG NEC V16.49 [place] [facility] Nov, [place] [id number] [place] [facility] 103 Nov, [place] [id number] [place] [facility] Nov, [place] [id number] [place] [facility] [address] [place] [address] Triphamm Nov, Menorrhagia [address] [place], [place] [id number] [place] [facility] 103 Nov, Menorrhagia 626.2 [place] [id number] [place] [facility] 103 Nov, Menorrhagia 626.2 ; FM HX [facility] OVARY MALIGNANCY V16.41 and [place] [id number] Endometrial polyp 621.0 [place] [facility] 103 Jun, [place] [id number] [place] [facility] [address] [place] [address] Triphamm Jun, UTERINE FIBROIDS- UNSPEC OBGY Road [address] [place], 218.9 ; FM HX OVARY [place] [id number] MALIGNANCY V16.41 ; FM HX GENITAL MALIG NOS V16.40 and Menorrhagia 626.2 [place] [facility] 103 Jun, [place] [id number] [place] [facility] 103 Jun, [place] [id number] [place] [facility] 103 Jun, [place] [id number] [place] [facility] Jun, [place] [id number] [place] [facility] 103 May, UTERINE FIBROIDS- UNSPEC OBGYN [facility] 218.9 ; FM HX OVARY [place], [place] [id number] MALIGNANCY V16.41 and FM HX GENITAL MALIG NOS V16.40 [place] [facility] 103 May, Enlarged uterus 621.2 and OBGYN [facility] UTERINE FIBROIDS-UNSPEC [place], [place] [id number] 218.9 [facility] 103 Apr, OBGYN [place], [place] [id number] [place] [facility] 103 Apr, UTERINE FIBROIDS- UNSPEC OBGYN [facility] 218.9 [place], [place] [id number] [facility] 103 Mar, OBGYN [place], [place] [id number] IMMUNIZATIONS No Known Immunizations SOCIAL HISTORY Never Assessed REASON FOR REFERRAL FUNCTIONAL STATUS PLAN OF CARE VITAL SIGNS MEDICATIONS Unknown Medications PROCEDURES No Known procedures RESULTS No Results REASON FOR VISIT missing lab results Insurance Providers [facility] Patient Patient Patient Patient Patient Subscriber Subscriber Subscriber Group Insurance Plan Plan Plan Plan ID Relationship Address Phone Name Date of ID Name Date of No Type Insurance Insurance Insurance Coverage to Subscriber Address Phone Name Dates Raheel [phone] [place] self Lizzie [id number] [address] [address] MEDICAL (GENERAL) HISTORY Type Description Date Medical [...]
[2018-05-11 19:30] VITALS: BP 143/64
--- NOTE | 2018-05-11 20:15 | UC ---
Throat Pain/Nasal Bayron HPI - HPI Summary HPI Summary: 52-year-old woman comes in today with complaint of 3 weeks of cough and nasal and chest congestion. The chest congestion has gotten worse over the last 2 days. She feels like the infection has settled into her chest. She has had wheezing. No fevers. No sinus pressure. She is not a smoker - History of Current Complaint Chief Complaint: UCRespiratory Stated Complaint: CONGESTION,COUGH Time Seen by Provider: 05/11/18 20:04 Hx Last Menstrual Period: 03/21/2018 Pain Intensity: 3 - Allergies/Home Medications Allergies/Adverse Reactions: Allergies Allergy/AdvReac Type Severity Reaction Status Date / Time cefaclor [From Ceclor] Allergy Rash Verified 05/11/18 19:31 cefuroxime [From Ceftin] Allergy Rash Verified 05/11/18 19:31 lactose Allergy GI Upset Verified 05/11/18 19:31 peanut Allergy anaph Verified 05/11/18 19:31 Penicillins Allergy Rash Verified 05/11/18 19:31 PMH/Surg Hx/FS Hx/Imm Hx Psychological History: Depression - Surgical History Surgical History: Yes Surgery Procedure, Year, and Place: d&c -2005. uterine ablasion-2008. C- sections 1989 & 2001. D&C 05/12/13 - Family History Known Family History: Positive: Unknown, Hypertension - mother, Diabetes, Other - Colon Cancer - father; Breast CA - great aunt Negative: Cardiac Disease - Social History Alcohol Use: None Substance Use Type: None Smoking Status (MU): Never Smoked Tobacco Have You Smoked in the Last Year: No - Immunization History Most Recent Tetanus Shot: >10 years Review of Systems Constitutional: Negative Skin: Negative Eyes: Negative ENT: Sore Throat, Nasal Discharge, Sinus Congestion Respiratory: Shortness Of Breath, Cough Cardiovascular: Negative Gastrointestinal: Negative Motor: Negative Neurovascular: Negative Musculoskeletal: Negative Neurological: Negative Psychological: Negative Is Patient Immunocompromised?: No All Other Systems Reviewed And Are Negative: Yes Physical Exam Triage Information Reviewed: Yes Appearance: Well-Appearing, Well-Nourished Vital Signs: Initial Vital Signs Temp 97.8 F 05/11/18 19:27 Pulse 75 05/11/18 19:27 Resp 18 05/11/18 19:27 BP 143/64 05/11/18 19:27 Pulse Ox 98 05/11/18 19:27 Vital Signs Reviewed: Yes Eye Exam: Normal Eyes: Positive: Conjunctiva Clear ENT: Positive: Pharyngeal erythema, Nasal congestion, Nasal drainage, TMs normal Neck exam: Normal Neck: Positive: Supple, Nontender Respiratory: Positive: Lungs clear, Normal breath sounds, No respiratory distress, No accessory muscle use Cardiovascular Exam: Normal Cardiovascular: Positive: RRR Musculoskeletal Exam: Normal Musculoskeletal: Positive: Strength Intact, ROM Intact Neurological Exam: Normal Neurological: Positive: Alert Psychological Exam: Normal Psychological: Positive: Age Appropriate Behavior Skin Exam: Normal Throat Pain/Nasal Course/Dx - Course Course Of Treatment: SX > 10 DAYS - Differential Dx/Diagnosis Provider Diagnoses: BRONCHITIS WITH BRONCHOSPASM Discharge - Sign-Out/Discharge Documenting (check all that apply): Patient Departure All imaging exams completed and their final reports reviewed: No Studies - Discharge Plan Condition: Stable Disposition: HOME Patient Education Materials: Acute Bronchitis (ED), Bronchospasm (ED) Referrals: Jamari Roman MD [Primary Care Provider] - Additional Instructions: FOLLOW UP WITH YOUR DOCTOR. GET RECHECKED FOR ANY WORSENING OF YOUR CONDITION OR QUESTIONS OR CONCERNS. - Billing Disposition and Condition Condition: STABLE Disposition: Home
== END 2018-05-11 20:44 | disposition home or self-care (01) ==
LOC: UCEAST 18:08
DX: J20.9 Acute bronchitis, unspecified (principal); Z88.0 Allergy status to penicillin; Z88.1 Allergy status to other antibiotic agents; Z91.010 Allergy to peanuts
CPT/HCPCS: 99212; G0463

== ENCOUNTER 2018-08-09 08:15 | Emergency (ER) | payer OTHER ==
[2018-08-09 08:29] VITALS: BP 138/62
--- NOTE | 2018-08-09 08:44 | UC ---
Throat Pain/Nasal Bayron HPI - HPI Summary HPI Summary: 52-year-old female presents with 3 week history of nasal congestion, sinus pressure, bilateral ear pressure, and sore throat. States over the last 4 days she is also started to develop a productive cough for yellow sputum. Denies fever, chills, chest pain, shortness of breath, wheezing, abdominal pain, nausea , or vomiting. - History of Current Complaint Chief Complaint: UCRespiratory Stated Complaint: RESP Time Seen by Provider: 08/09/18 08:18 Hx Obtained From: Patient Hx Last Menstrual Period: 08/06/18 Pain Intensity: 5 - Allergies/Home Medications Allergies/Adverse Reactions: Allergies Allergy/AdvReac Type Severity Reaction Status Date / Time cefaclor [From Ceclor] Allergy Rash Verified 05/11/18 19:31 cefuroxime [From Ceftin] Allergy Rash Verified 05/11/18 19:31 lactose Allergy GI Upset Verified 05/11/18 19:31 peanut Allergy anaph Verified 05/11/18 19:31 Penicillins Allergy Rash Verified 05/11/18 19:31 Home Medications: Home Medications Brompheniramine/Phenylephrine [Dimetapp Cold & Allergy Elixir] 08/09/18 [ History] Dextromethorphan Polistirex [Delsym] 08/09/18 [History] guaiFENesin LIQ* [Robitussin*] 08/09/18 [History] PMH/Surg Hx/FS Hx/Imm Hx Endocrine History: Hypothyroidism Cardiovascular History: Hypertension Psychological History: Anxiety, Depression - Surgical History Surgical History: Yes Surgery Procedure, Year, and Place: d&c -2005. uterine ablasion-2008. C- sections 1989 & 2001. D&C 05/12/13 - Family History Known Family History: Positive: Hypertension - mother, Diabetes, Other - Colon Cancer - father; Breast CA - great aunt Negative: Cardiac Disease - Social History Occupation: Employed Full-time Lives: With Family Alcohol Use: None Substance Use Type: None Smoking Status (MU): Never Smoked Tobacco Have You Smoked in the Last Year: No - Immunization History Most Recent Tetanus Shot: >10 years Review of Systems All Other Systems Reviewed And Are Negative: Yes Constitutional: Negative: Fever, Chills Eyes: Negative: Drainage, Eye Redness ENT: Positive: Sore Throat, Ear Ache, Nasal Discharge, Sinus Congestion, Sinus Pain/Tenderness Respiratory: Positive: Cough. Negative: Shortness Of Breath Cardiovascular: Negative: Palpitations, Chest Pain Gastrointestinal: Negative: Abdominal Pain, Vomiting, Diarrhea, Nausea Is Patient Immunocompromised?: No Physical Exam - Summary Physical Exam Summary: GENERAL APPEARANCE: Well developed, obese, alert and cooperative, and appears to be in no acute distress. EYES: Conjunctiva clear. No discharge. Vision is grossly intact. EARS: External auditory canals and tympanic membranes clear, hearing grossly intact. NOSE: Mild-moderate nasal congestion with mucosal erythema and edema. No discharge. Maxillary sinus tenderness with percussion. THROAT: Mild pharyngeal erythema with cobblestoning. No tonsilar inflammation, swelling, exudate, or lesions. Oral cavity normal. Teeth and gingiva in good general condition. NECK: Neck supple, non-tender without lymphadenopathy. CARDIAC: Normal S1 and S2. No S3, S4 or murmurs. Rhythm is regular. There is no peripheral edema, cyanosis or pallor. Extremities are warm and well perfused. Capillary refill is less than 2 seconds. LUNGS: Clear to auscultation and percussion without rales, rhonchi, wheezing or diminished breath sounds. ABDOMEN: Positive bowel sounds. Soft, nondistended, nontender. No guarding or rebound. No masses or hepatosplenomegally. MUSKULOSKELETAL: ROM intact to all extremities. No joint erythema or tenderness. Normal muscular development. Normal gait. SKIN: Skin normal color, texture and turgor with no lesions or eruptions. Triage Information Reviewed: Yes Vital Signs: Initial Vital Signs Temp 97.6 F 08/09/18 08:19 Pulse 76 08/09/18 08:19 Resp 16 08/09/18 08:19 BP 138/62 08/09/18 08:19 Pulse Ox 98 08/09/18 08:19 Vital Signs Reviewed: Yes Throat Pain/Nasal Course/Dx - Course Course Of Treatment: 52-year-old female presents with 3 week history of nasal congestion, sinus pressure, bilateral ear pressure, and sore throat. States over the last 4 days she is also started to develop a productive cough for yellow sputum. Denies fever, chills, chest pain, shortness of breath, wheezing , abdominal pain, nausea, or vomiting. Afebrile. Vital signs are stable. Exam revealed mild to moderate nasal congestion, maxillary sinus tenderness, some mild pharyngeal erythema with cobblestoning, clear bilateral breath sounds , and a nonproductive cough. Considering the duration of her sinus symptoms I will treat her with a course of doxycycline 100 mg twice a day 7 days and recommend symptomatic treatment with saline rinses, fluticasone nasal spray, [id number] decongestant, and Tessalon Perles 1 cap every 8 hours when necessary for cough. She is to follow-up with her primary care provider in 7 days if symptoms persist. Warning symptoms were reviewed with the patient. She verbalizes understanding and agrees with plan of care. - Differential Dx/Diagnosis Differential Diagnosis/HQI/PQRI: Otitis Media, Pharyngitis, Sinusitis, Tonsillitis, URI Provider Diagnosis: Acute sinusitis with symptoms greater than 10 days Discharge - Sign-Out/Discharge Documenting (check all that apply): Patient Departure All imaging exams completed and their final reports reviewed: No Studies - Discharge Plan Condition: Stable Disposition: HOME Prescriptions: Benzonatate CAP* [Tessalon 100 MG CAP*] 100 mg PO TID PRN #21 cap PRN Reason: Cough Doxycycline Hyclate 100 mg PO BID #14 tablet Fluticasone NASAL SPRAY 50MCG* [Flonase NASAL SPRAY 50MCG*] 2 spray BOTH NARES DAILY #1 btl Patient Education Materials: Sinusitis (ED) Referrals: Jamari Roman MD [Primary Care Provider] - 7 Days (If no improvement in symptoms.) Additional Instructions: Your history and exam are consistent with an acute sinus infection. Considering the duration of your symptoms we will treat the infection with an antibiotic. Start doxycycline 1 tablet twice a day for 7 days. Be sure to finish the entire course even if you are feeling better. Drink plenty of fluids to avoid dehydration especially if you are running any fever. Use a saline rinse kit such as Neti Pot or NeilMed at least twice a day to help thin secretions and promote drainage of the sinuses. Use fluticasone (Flonase) nasal spray 2 sprays each nostril once daily. Take over the counter acetaminophen (Tylenol) or ibuprofen (Advil, Motrin) according to directions as needed for pain or fever. Use salt water gargles several times a day if you have a sore throat. You may also use Chloraseptic spray or Cepacol lonzenges according to directions which contain a numbing medication and can provide some temporary relief from your sore throat. Use Tessalon Perles 1 cap every 8 hours as needed for cough. Follow up with your primary care provider in 7 days if symptoms persist. Seek immediate medical attention in the emergency room if you have fever greater than 100.5 F despite taking acetaminophen or ibuprofen, have chest pain , difficulty breathing, are unable to swallow, or have any worsening of symptoms. - Billing Disposition and Condition Condition: STABLE Disposition: Home
== END 2018-08-09 08:50 | disposition home or self-care (01) ==
LOC: UCEAST 08:15
DX: J01.90 Acute sinusitis, unspecified (principal); I10 Essential (primary) hypertension; Z91.010 Allergy to peanuts; Z88.1 Allergy status to other antibiotic agents; Z88.0 Allergy status to penicillin; Z91.011 Allergy to milk products
CPT/HCPCS: 99212; G0463

== ENCOUNTER 2019-01-26 12:06 | Emergency (ER) | payer OTHER ==
[2019-01-26 12:39] VITALS: BP 153/60
--- NOTE | 2019-01-26 13:31 | UC ---
General HPI - HPI Summary HPI Summary: States she has been having issues with allergies for the past 2 months. SHe has been using claritin and flonase with not a lot of improvement. STates over the past week she has developed a sore throat and over past two days diarrhea. Minimal cough. Some nausea but no vomiting. Some lower abdominal discomfort. No urinary symptoms. Daughter recently had viral illness. No fever. tolerating PO. Currently on her menses. meds; reviewed - History of Current Complaint Chief Complaint: UCRespiratory Stated Complaint: SORE THOAT STOMACHACHE Time Seen by Provider: 01/26/19 13:18 Hx Last Menstrual Period: 08/06/18 Pain Intensity: 3 - Allergy/Home Medications Allergies/Adverse Reactions: Allergies Allergy/AdvReac Type Severity Reaction Status Date / Time cefaclor [From Ceclor] Allergy Rash Verified 01/26/19 12:23 cefuroxime [From Ceftin] Allergy Rash Verified 01/26/19 12:23 lactose Allergy GI Upset Verified 01/26/19 12:23 peanut Allergy anaph Verified 01/26/19 12:23 Penicillins Allergy Rash Verified 01/26/19 12:23 PMH/Surg Hx/FS Hx/Imm Hx Endocrine History: Thyroid Disease Cardiovascular History: Hypertension - Surgical History Surgical History: Yes Surgery Procedure, Year, and Place: d&c -2005. uterine ablasion-2008. C- sections 1989 & 2001. D&C 05/12/13 - Family History Known Family History: Positive: Unknown, Hypertension - mother, Diabetes, Other - Colon Cancer - father; Breast CA - great aunt Negative: Cardiac Disease - Social History Alcohol Use: None Substance Use Type: None Smoking Status (MU): Never Smoked Tobacco Have You Smoked in the Last Year: No - Immunization History Most Recent Tetanus Shot: >10 years Review of Systems All Other Systems Reviewed And Are Negative: Yes ENT: Positive: Sore Throat, Sinus Congestion Gastrointestinal: Positive: Diarrhea Physical Exam Triage Information Reviewed: Yes Appearance: Well-Appearing Vital Signs: Initial Vital Signs Temp 97.2 F 01/26/19 12:18 Pulse 105 01/26/19 12:18 Resp 18 01/26/19 12:18 BP 153/60 01/26/19 12:18 Pulse Ox 99 01/26/19 12:18 Vital Signs Reviewed: Yes ENT: Positive: Pharyngeal erythema, Nasal congestion, TMs normal, Tonsillar swelling Neck: Positive: Supple, Nontender Respiratory: Positive: Lungs clear, Normal breath sounds Cardiovascular: Positive: No Murmur, Tachycardia Abdomen Description: Positive: Nontender, Soft Bowel Sounds: Positive: Present Course/Dx - Course Course Of Treatment: This is a 53 yr old with URI symptoms and diarrhea Assessment Suspect seaonal allergies with viral syndrome as well Nontoxic appearing Plan Recommend switching claritin to either mitchell or zyrtec Continue flonase Recommend rest, fluids, bland diet TYlenol and or ibuprofen as needed for pain,fever If symptoms persist or worsen, recommend follow up with PCP or return to urgent care - Diagnoses Provider Diagnosis: Viral syndrome, Seasonal allergies Discharge - Sign-Out/Discharge Documenting (check all that apply): Patient Departure All imaging exams completed and their final reports reviewed: No Studies - Discharge Plan Condition: Fair Disposition: HOME Patient Education Materials: Allergies (ED), Viral Syndrome (ED) Referrals: Jamari Roman MD [Primary Care Provider] - Additional Instructions: Recommend switching claritin to either mitchell or zyrtec Continue flonase Recommend rest, fluids, bland diet TYlenol and or ibuprofen as needed for pain,fever If symptoms persist or worsen, recommend follow up with PCP or return to urgent care - Billing Disposition and Condition Condition: FAIR Disposition: Home
== END 2019-01-26 13:35 | disposition home or self-care (01) ==
LOC: UCEAST 12:06
DX: B34.9 Viral infection, unspecified (principal); J30.2 Other seasonal allergic rhinitis; I10 Essential (primary) hypertension
CPT/HCPCS: 87651; 99212; G0463

== ENCOUNTER 2019-01-28 01:09 | Emergency (ER) | payer OTHER ==
--- NOTE | 2019-01-28 02:00 | ED ---
HPI Chest Pain - HPI Summary HPI Summary: A 53 y/o female presents to [facility] with a chief complaint of chest pain since 19: 30 01/27/19. The patient was sitting in a chair when she had back spasms, and then chest pain. Now her back hurts without spasms. She rated her pain at triage as a 5/10 in severity. 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 The patient had a stress test done 6 years ago because of her anxiety. She has a Hx of hypothyroidism and denies a FHx of cardiac disease. - History of Current Complaint Chief Complaint: EDChestPainROMI Time Seen by Provider: 01/28/19 01:50 Hx Obtained From: Patient Hx Last Menstrual Period: 08/06/18 Onset/Duration: Started Hours Ago, Still Present Timing: Constant, Lasting Hours Initial Severity: Moderate Current Severity: Moderate Pain Intensity: 5 Pain Scale Used: 0-10 Numeric Chest Pain Location: Diffuse Chest Pain Radiates: Yes Chest Pain Radiates To:: Back Character: Other: - spasms Aggravating Factor(s): Nothing Alleviating Factor(s): Nothing Associated Signs and Symptoms: Positive: Anxiety, Lightheadedness, Back Pain - Allergy/Home Medications Allergies/Adverse Reactions: Allergies Allergy/AdvReac Type Severity Reaction Status Date / Time cefaclor [From Ceclor] Allergy Rash Verified 01/28/19 01:14 cefuroxime [From Ceftin] Allergy Rash Verified 01/28/19 01:14 lactose Allergy GI Upset Verified 01/28/19 01:14 peanut Allergy anaph Verified 01/28/19 01:14 Penicillins Allergy Rash Verified 01/28/19 01:14 PMH/Surg Hx/FS Hx/Imm Hx Endocrine/Hematology History: Reports: Hx Thyroid Disease - hypothyroid Denies: Hx Diabetes Cardiovascular History: Reports: Hx Hypercholesterolemia, Hx Hypertension Denies: Hx Pacemaker/ICD Respiratory History: Reports: Hx Asthma Denies: Hx Chronic Obstructive Pulmonary Disease (COPD) GI History: Denies: Hx Ulcer History: Reports: Hx Kidney Stones Denies: Hx Renal Disease Sensory History: Reports: Hx Contacts or Glasses Denies: Hx Hearing Aid Opthamlomology History: Reports: Hx Contacts or Glasses Psychiatric History: Reports: Hx Depression, Hx Panic Disorder - ANXIETY - Cancer History Cancer Type, Location and Year: depression Hx Chemotherapy: No Hx Radiation Therapy: No - Surgical History Surgery Procedure, Year, and Place: d&c -2005. uterine ablasion-2008. C- sections 1989 & 2001. D&C 05/12/13 Infectious Disease History: No Infectious Disease History: Denies: Hx Clostridium Difficile, Hx Hepatitis, Hx Human Immunodeficiency Virus (HIV), Hx of Known/Suspected MRSA, Hx Shingles, Hx Tuberculosis, Hx Known/ Suspected VRE, Hx Known/Suspected VRSA, History Other Infectious Disease, Traveled Outside the [place] in Last 30 Days - Family History Known Family History: Positive: Hypertension - mother, Diabetes, Other - Colon Cancer - father; Breast CA - great aunt Negative: Cardiac Disease - Social History Alcohol Use: None Substance Use Type: Reports: None Hx Tobacco Use: No Smoking Status (MU): Never Smoked Tobacco Have You Smoked in the Last Year: No Review of Systems Negative: Fever Positive: Chest Pain Positive: Myalgia - back pain Neurological: Other - positive: lightheadedness Positive: Anxious All Other Systems Reviewed And Are Negative: Yes Physical Exam - Summary Physical Exam Summary: VITAL SIGNS: Reviewed. GENERAL: Patient is a well-developed and nourished FEMALE who is lying comfortable in the stretcher. Patient is not in any acute respiratory distress. HEAD AND FACE: No signs of trauma. No ecchymosis, hematomas or skull depressions. No sinus tenderness. EYES: PERRLA, EOMI x 2, No injected conjunctiva, no nystagmus. EARS: Hearing grossly intact. Ear canals and tympanic membranes are within normal limits. MOUTH: Oropharynx within normal limits. NECK: Supple, trachea is midline, no adenopathy, no JVD, no carotid bruit, no c- spine tenderness, neck with full ROM CHEST: Symmetric, no tenderness at palpation LUNGS: Clear to auscultation bilaterally. No wheezing or crackles. CVS: Regular rate and rhythm, S1 and S2 present, no murmurs or gallops appreciated. ABDOMEN: Soft, non-tender. No signs of distention. No rebound no guarding, and no masses palpated. Bowel sounds are normal. EXTREMITIES: FROM in all major joints, no edema, no cyanosis or clubbing. NEURO: Alert and oriented x 3. No acute neurological deficits. Speech is normal and follows commands. SKIN: Dry and warm Triage Information Reviewed: Yes Vital Signs On Initial Exam: Initial Vitals Temp Pulse Resp BP Pulse Ox 98.6 F 93 20 132/62 96 01/28/19 01:10 01/28/19 01:10 01/28/19 01:10 01/28/19 01:10 01/28/19 01:10 Vital Signs Reviewed: Yes Diagnostics - Vital Signs Vital Signs Temp Pulse Resp BP Pulse Ox 01/28/19 01:16 92 25 97 01/28/19 01:10 98.6 F 93 20 132/62 96 - Laboratory Result Diagrams: 01/28/19 02:23 01/28/19 02:23 Lab Statement: Any lab studies that have been ordered have been reviewed, and results considered in the medical decision making process. - Radiology CXR Radiology Interpretation Completed By: ED Physician Summary of Radiographic Findings: No acute process. Pending official imaging report. - EKG 01:10 Cardiac Rate: NL - 85 bpm EKG Rhythm: Sinus Rhythm Summary of EKG Findings: NSR at 85 bpm, Normal axis. Normal interval. No ischemic changes. Chest Pain Course/Dx - Course Course Of Treatment: A 53 y/o female presents to [facility] with a chief complaint of chest pain since 19:30 01/27/19. The physical exam was unremarkable. EKG at 01:10 showed Normal axis. Normal interval. No ischemic changes. CXR showed no acute process. In the ED course the patient was given Ativan IV and Toradol IV. Bloodwork and chemistries obtained and are WNL. There were two negative troponins. The patient will be discharged home and follow up with cardiology for an outpatient stress test. She is agreeable with this plan. - Diagnoses Provider Diagnoses: Chest pain Discharge - Sign-Out/Discharge Documenting (check all that apply): Patient Departure - DC Patient Received Moderate/Deep Sedation with Procedure: No - Discharge Plan Condition: Stable Disposition: HOME Patient Education Materials: Chest Pain (DC) Referrals: Jamari Roman MD [Primary Care Provider] - (2-3 days) Josh Mcfadden MD [Medical Doctor] - Additional Instructions: Follow up with cardiology for an outpatient stress test. PLEASE RETURN TO THE ED IMMEDIATELY FOR WORSENING OR CONCERNING SYMPTOMS. - Billing Disposition and Condition Condition: STABLE Disposition: Home - Attestation Statements Document Initiated by Scribe: Yes Documenting Scribe: Rodrigo Miller Provider For Whom Scribe is Documenting (Include Credential): Shaniqua Hoang MD Scribe Attestation: I, Rodrigo Miller, scribed for Shaniqua Hoang MD on 01/28/19 at 0642. Scribe Documentation Reviewed: Yes Provider Attestation: The documentation as recorded by the Rodrigo munroe accurately reflects the service I personally performed and the decisions made by me, Shaniqua Hoang MD Status of Scribe Document: Viewed
[2019-01-28] MEDS ORDERED: Ketorolac INJ* 30 MG/ML 1 ML VIAL IV PUSH ONE (02:12)
[2019-01-28] MEDS ORDERED: LORazepam INJ* 2 MG/ML 1 ML VIAL IV PUSH ONE (02:12)
[2019-01-28] MEDS ORDERED: Lorazepam PYXIS KEY PRN (02:12)
[2019-01-28 02:32] LABS: ABS Basophils 0.1 10^3/ul (0-0.2); ABS Eosinophils 0.1 10^3/ul (0-0.6); ABS Monocytes 0.7 10^3/ul (0-0.8); ABS Neutrophils 7.1 10^3/ul (1.5-7.7); Eosinophil % 0.9 %; Hematocrit 39 % (35-47); Hemoglobin 12.7 g/dL (12.0-16.0); Lymphocyte % 19.8 %; Mean Corpuscular HGB Conc 33 g/dL (31-36); Mean Corpuscular Hemoglobin 26 pg (27-31); Mean Corpuscular Volume 79 fL (80-97); Mean Platelet Volume 8.2 fL (7.4-10.4); Platelet Count 225 10^3/uL (150-450); Red Blood Count 4.89 10^6 /uL (3.70-4.87); Red Cell Distribution Width 15 % (10-15); White Blood Count 9.9 10^3/uL (3.5-10.8)
[2019-01-28 02:54] LABS: Activated Partial Thrombo Time 38.1 seconds (26.0-38.0); INR 0.94 (0.82-1.09)
[2019-01-28 03:04] LABS: Albumin 3.9 g/dL (3.2-5.2); Albumin/Globulin Ratio 1.4 (1-3); BUN/Creatinine Ratio 17.1 (8-20); Calcium 9.4 mg/dL (8.6-10.3); EGFR African American 106.7 (>60); EGFR Non-African American 88.2 (>60); Globulin 2.8 g/dL (2-4); Magnesium 1.8 mg/dL (1.9-2.7); Potassium 4.1 mmol/L (3.5-5.0); Total Bilirubin 0.2 mg/dL (0.2-1.0); Total Protein 6.7 g/dL (6.4-8.9)
[2019-01-28 06:11] VITALS: BP 98/59
== END 2019-01-28 06:11 | disposition home or self-care (01) ==
LOC: ED 01:09
DX: R07.89 Other chest pain (principal); R42 Dizziness and giddiness; M79.10 Myalgia, unspecified site; F41.9 Anxiety disorder, unspecified; I51.7 Cardiomegaly; Z88.0 Allergy status to penicillin; Z88.1 Allergy status to other antibiotic agents; Z91.011 Allergy to milk products; Z91.010 Allergy to peanuts
CPT/HCPCS: 36415; 71045; 80053; 83036; 83735; 84484; 85025; 85610; 85730; 93005; 96374; 96375; 99283; J1885; J2060

== ENCOUNTER 2019-02-09 00:59 | Emergency (ER) | payer OTHER ==
[2019-02-09] MEDS ORDERED: Ketorolac INJ* 30 MG/ML 1 ML VIAL IM ONE (02:54)
[2019-02-09] MEDS ORDERED: Cyclobenzaprine TAB* 10 MG PO ONE (02:54)
--- NOTE | 2019-02-09 02:57 | ED ---
Back Pain - HPI Summary HPI Summary: This patient is a 53 year old F presenting to ED with a chief complaint of back pain spasms that were intermittent for the last week but constant in the past 48 hours. The pain radiates into the arms and shoulders. The pain is not alleviated by Ibuprofen or Tylenol. The patient rates the pain 6/10 in severity. Symptoms aggravated by nothing. Symptoms alleviated by nothing. Patient denies fever. - History of Current Complaint Chief Complaint: EDBackInjuryPain Stated Complaint: BACK PAIN PER PT Time Seen by Provider: 02/09/19 02:48 Hx Obtained From: Patient Hx Last Menstrual Period: 08/06/18 Onset/Duration: Lasting Days, Lasting Weeks, Still Present, Worse Since Onset/Duration: Started Weeks Ago, Still Present Timing: Constant, Intermittent Back Pain Location: Radiates To - Arms and shoulders Severity Initially: Mild Severity Currently: Moderate Pain Intensity: 6 Pain Scale Used: 0-10 Numeric Character: Spasmodic Aggravating Symptom(s): Nothing Alleviating Symptom(s): Nothing Associated Signs And Symptoms: Negative: Fever - Allergies/Home Medications Allergies/Adverse Reactions: Allergies Allergy/AdvReac Type Severity Reaction Status Date / Time cefaclor [From Ceclor] Allergy Rash Verified 02/09/19 01:17 cefuroxime [From Ceftin] Allergy Rash Verified 02/09/19 01:17 lactose Allergy GI Upset Verified 02/09/19 01:17 peanut Allergy anaph Verified 02/09/19 01:17 Penicillins Allergy Rash Verified 02/09/19 01:17 PMH/Surg Hx/FS Hx/Imm Hx Endocrine/Hematology History: Reports: Hx Thyroid Disease - hypothyroid Denies: Hx Diabetes Cardiovascular History: Reports: Hx Hypercholesterolemia, Hx Hypertension Denies: Hx Pacemaker/ICD Respiratory History: Reports: Hx Asthma Denies: Hx Chronic Obstructive Pulmonary Disease (COPD) GI History: Denies: Hx Ulcer History: Reports: Hx Kidney Stones Denies: Hx Renal Disease Sensory History: Reports: Hx Contacts or Glasses Denies: Hx Hearing Aid Opthamlomology History: Reports: Hx Contacts or Glasses Psychiatric History: Reports: Hx Depression, Hx Panic Disorder - ANXIETY - Cancer History Cancer Type, Location and Year: depression Hx Chemotherapy: No Hx Radiation Therapy: No - Surgical History Surgery Procedure, Year, and Place: d&c -2005. uterine ablasion-2008. C- sections 1989 & 2001. D&C 05/12/13 Infectious Disease History: No Infectious Disease History: Denies: Hx Clostridium Difficile, Hx Hepatitis, Hx Human Immunodeficiency Virus (HIV), Hx of Known/Suspected MRSA, Hx Shingles, Hx Tuberculosis, Hx Known/ Suspected VRE, Hx Known/Suspected VRSA, History Other Infectious Disease, Traveled Outside the [place] in Last 30 Days - Family History Known Family History: Positive: Unknown, Hypertension - mother, Diabetes, Other - Colon Cancer - father; Breast CA - great aunt Negative: Cardiac Disease - Social History Alcohol Use: None Hx Substance Use: No Substance Use Type: Reports: None Hx Tobacco Use: No Smoking Status (MU): Never Smoked Tobacco Have You Smoked in the Last Year: No Review of Systems Negative: Fever Musculoskeletal: Other - Back pain All Other Systems Reviewed And Are Negative: Yes Physical Exam - Summary Physical Exam Summary: VITAL SIGNS: Reviewed. GENERAL: Patient is a morbidly obese female who is lying comfortable in the stretcher. Patient is not in any acute respiratory distress. HEAD AND FACE: No signs of trauma. No ecchymosis, hematomas or skull depressions. No sinus tenderness. EYES: PERRLA, EOMI x 2, No injected conjunctiva, no nystagmus. EARS: Hearing grossly intact. Ear canals and tympanic membranes are within normal limits. MOUTH: Oropharynx within normal limits. NECK: Supple, trachea is midline, no adenopathy, no JVD, no carotid bruit, no c- spine tenderness, neck with full ROM CHEST: Symmetric, no tenderness at palpation LUNGS: Clear to auscultation bilaterally. No wheezing or crackles. CVS: Regular rate and rhythm, S1 and S2 present, no murmurs or gallops appreciated. ABDOMEN: Soft, non-tender. No signs of distention. No rebound no guarding, and no masses palpated. Bowel sounds are normal. EXTREMITIES: FROM in all major joints, no edema, no cyanosis or clubbing. NEURO: Alert and oriented x 3. No acute neurological deficits. Speech is normal and follows commands. SKIN: Dry and warm MUSCULOSKELETAL: lumbarsacral tenderness, bilateral straight leg raise test is negative Triage Information Reviewed: Yes Vital Signs On Initial Exam: Initial Vitals Temp Pulse Resp BP Pulse Ox 97.6 F 65 16 129/77 97 02/09/19 01:15 02/09/19 01:15 02/09/19 01:15 02/09/19 01:15 02/09/19 01:15 Vital Signs Reviewed: Yes Diagnostics - Vital Signs Vital Signs Temp Pulse Resp BP Pulse Ox 02/09/19 01:15 97.6 F 65 16 129/77 97 - Laboratory Lab Statement: Any lab studies that have been ordered have been reviewed, and results considered in the medical decision making process. Back Pain Course/Dx - Course Course Of Treatment: This patient is a 53 year old F presenting to ED with a chief complaint of back pain spasms that were intermittent for the last week but constant in the past 48 hours. In the ED course, patient received Toradol and Flexeril. Patient will be discharged home with dx of back pain. Patient understands and agrees with this plan. - Diagnoses Provider Diagnoses: Back pain Discharge - Sign-Out/Discharge Documenting (check all that apply): Patient Departure - Discharge Patient Received Moderate/Deep Sedation with Procedure: No - Discharge Plan Condition: Stable Disposition: HOME Prescriptions: Cyclobenzaprine TAB* [Flexeril 10 MG TAB*] 10 mg PO TID PRN #20 tab PRN Reason: Spasms - Back Ibuprofen TAB* [Motrin TAB* 800 MG] 800 mg PO Q6H PRN #30 tab PRN Reason: Pain - Back Patient Education Materials: Back Pain (ED) Referrals: Jamari Roman MD [Primary Care Provider] - 2 Days Additional Instructions: Follow up with your primary care provider in 1-2 days. RETURN TO THE ER FOR WORSENING OR CHANGING SYMPTOMS - Attestation Statements Document Initiated by Scribe: Yes Documenting Scribe: Kedar Craft Provider For Whom Scribe is Documenting (Include Credential): Shaniqua Hoang MD Scribe Attestation: Kedar Miranda, scribed for Shaniqua Hoang MD on 02/09/19 at 0322. Status of Scribe Document: Ready
[2019-02-09 04:21] VITALS: BP 132/76
== END 2019-02-09 03:20 | disposition home or self-care (01) ==
LOC: ED 00:59
DX: M54.9 Dorsalgia, unspecified (principal); Z88.0 Allergy status to penicillin; I10 Essential (primary) hypertension
CPT/HCPCS: 96372; 99282; A9270-GY; J1885

== ENCOUNTER 2019-03-15 06:40 | Emergency (ER) | payer OTHER ==
[2019-03-15] MEDS ORDERED: Ketorolac INJ* 30 MG/ML 1 ML VIAL IV PUSH ONE (07:12)
--- NOTE | 2019-03-15 07:43 | ED ---
Abdominal Pain/Female - HPI Summary HPI Summary: This patient is a 53-year-old female who presents to the ED with left-sided flank pain radiating into the left lower quadrant with associated chills. She states she was treated for a UTI approximately 1 week ago with 3 days Levaquin. She states she had side effects of this medication and discontinued this. She continues to have symptoms, however now worsening. She was told by her OB/ DIRECTOR PHARMACEUTICAL this was a UTI most likely extending up into the kidney. She does have a history of kidney stones, approximately 30 years ago. She denies any smoking history or alcohol use. Denies any nausea, vomiting, constipation. She does have intermittent diarrhea over the past 2 weeks which could be contributory. She states she has had UTI symptoms in the past and this feels similar. She is endorsing chills, but denies any fevers or sweats. She states she is under a lot of stress at this time caring for her children, one with autism. She does not appear to be depressed or anxious at this time. Denies any CP or SOB. Symptoms aren't worse with attempting to urinate and better with rest, however still present. Not worse with movement. She has not tried any over-the- counter medications. - History of Current Complaint Chief Complaint: EDAbdPain Stated Complaint: POS KIDNEY INFECTION PER PT Hx Obtained From: Patient Hx Last Menstrual Period: 08/06/18 ?: No Onset/Duration: Sudden Onset Timing: Constant Severity Initially: Moderate Severity Currently: Moderate Pain Intensity: 9 Pain Scale Used: 0-10 Numeric Location: Flank Radiates: Yes Radiates to: LLQ Aggravating Factor(s): Nothing Alleviating Factor(s): Nothing Associated Signs and Symptoms: Positive: Back Pain, Urinary Symptoms, Diarrhea. Negative: Diaphoresis, Constipation, Blood in Stool, Nausea, Vomiting - Risk Factors Ectopic Risk Factor: Negative Ovarian Torsion Risk Factor: Negative Allergies/Adverse Reactions: Allergies Allergy/AdvReac Type Severity Reaction Status Date / Time cefaclor [From Ceclor] Allergy Rash Verified 03/15/19 06:50 cefuroxime [From Ceftin] Allergy Rash Verified 03/15/19 06:50 lactose Allergy GI Upset Verified 03/15/19 06:50 peanut Allergy anaph Verified 03/15/19 06:50 Penicillins Allergy Rash Verified 03/15/19 06:50 Home Medications: Home Medications Meloxicam [Mobic] 15 mg PO DAILY 03/15/19 [History Confirmed 03/15/19] PMH/Surg Hx/FS Hx/Imm Hx Previously Healthy: Yes Endocrine/Hematology History: Reports: Hx Thyroid Disease - hypothyroid Denies: Hx Diabetes Cardiovascular History: Reports: Hx Hypercholesterolemia, Hx Hypertension Denies: Hx Pacemaker/ICD Respiratory History: Reports: Hx Asthma Denies: Hx Chronic Obstructive Pulmonary Disease (COPD) GI History: Denies: Hx Ulcer History: Reports: Hx Kidney Stones Denies: Hx Renal Disease Sensory History: Reports: Hx Contacts or Glasses Denies: Hx Hearing Aid Opthamlomology History: Reports: Hx Contacts or Glasses Psychiatric History: Reports: Hx Depression, Hx Panic Disorder - ANXIETY - Cancer History Cancer Type, Location and Year: depression Hx Chemotherapy: No Hx Radiation Therapy: No - Surgical History Surgery Procedure, Year, and Place: d&c -2005. uterine ablasion-2008. C- sections 1989 & 2001. D&C 05/12/13 - Immunization History Hx Pertussis Vaccination: No Immunizations Up to Date: Yes Infectious Disease History: No Infectious Disease History: Denies: Hx Clostridium Difficile, Hx Hepatitis, Hx Human Immunodeficiency Virus (HIV), Hx of Known/Suspected MRSA, Hx Shingles, Hx Tuberculosis, Hx Known/ Suspected VRE, Hx Known/Suspected VRSA, History Other Infectious Disease, Traveled Outside the [place] in Last 30 Days - Family History Known Family History: Positive: Unknown, Hypertension - mother, Diabetes, Other - Colon Cancer - father; Breast CA - great aunt Negative: Cardiac Disease - Social History Occupation: Employed Full-time Lives: With Family Alcohol Use: None Hx Substance Use: No Substance Use Type: Reports: None Hx Tobacco Use: No Smoking Status (MU): Never Smoked Tobacco Have You Smoked in the Last Year: No Review of Systems Positive: Chills. Negative: Fever, Fatigue, Skin Diaphoresis Negative: Palpitations, Chest Pain Negative: Shortness Of Breath, Cough Positive: Abdominal Pain, Diarrhea. Negative: Vomiting, Nausea Positive: see HPI, flank pain. Negative: frequency, hematuria, incontinence, pain Negative: Arthralgia, Myalgia Skin: Negative Neurological: Negative All Other Systems Reviewed And Are Negative: Yes Physical Exam Triage Information Reviewed: Yes Vital Signs On Initial Exam: Initial Vitals Temp Pulse Resp BP Pulse Ox 97.5 F 90 16 169/96 98 03/15/19 06:48 03/15/19 06:48 03/15/19 06:48 03/15/19 06:48 03/15/19 06:48 Vital Signs Reviewed: Yes Appearance: Positive: Well-Appearing, Well-Nourished Skin: Positive: Skin Color Reflects Adequate Perfusion Head/Face: Positive: Normal Head/Face Inspection Eyes: Positive: EOMI, Conjunctiva Clear Neck: Positive: Supple, No Lymphadenopathy Respiratory/Lung Sounds: Positive: Clear to Auscultation, Breath Sounds Present Cardiovascular: Positive: RRR, Pulses are Symmetrical in both Upper and Lower Extremities Abdomen Description: Positive: Nontender, Soft, CVA Tenderness (L). Negative: CVA Tenderness (R) Bowel Sounds: Positive: Present Musculoskeletal: Positive: Normal, Strength/ROM Intact Neurological: Positive: Speech Normal Psychiatric: Positive: Normal, Affect/Mood Appropriate AVPU Assessment: Alert Diagnostics - Vital Signs Vital Signs Temp Pulse Resp BP Pulse Ox 03/15/19 07:03 91 156/81 97 03/15/19 07:02 92 97 03/15/19 06:48 97.5 F 90 16 169/96 98 - Laboratory Result Diagrams: 03/15/19 07:40 03/15/19 07:40 Lab Statement: Any lab studies that have been ordered have been reviewed, and results considered in the medical decision making process. Abdominal Pain Fem Course/Dx - Course Course Of Treatment: This patient is evaluated for UTI versus pyelonephritis versus kidney stone. She states she has had left flank pain radiating to the left lower quadrant without associated urinary symptoms 2 weeks. She denies any nausea, vomiting, constipation, but endorses intermittent diarrhea. She denies any fevers, however endorses chills. Labs obtained: This is no acute findings. UA obtained: 2+ WBCs and 2+ leukocytes she is evidence of UTI. CT abdomen/pelvis with IV contrast and without obtained due to assessment of kidney stone versus pyelonephritis versus other etiology. 2 mm kidney stone at the left ureterovesical junction causing mild hydronephrosis. She is given Bactrim twice daily 5 days as well as tramadol for pain control. She will return for any worsening or changing symptoms. Patient states she is asymptomatic at this time and offers no complaints or concerns. - Diagnoses Provider Diagnoses: UTI (urinary tract infection), Kidney stone Discharge - Sign-Out/Discharge Documenting (check all that apply): Patient Departure Patient Received Moderate/Deep Sedation with Procedure: No - Discharge Plan Condition: Stable Disposition: HOME Prescriptions: Ketorolac TAB * [Toradol TAB *] 10 mg PO Q6H #16 tab Sulfamethox/Trimethoprim DS* [Bactrim DS 800/160 TAB*] 1 tab PO BID #10 tab traMADol TAB* [Ultram*] 50 mg PO Q8H PRN #12 tab MDD 3 PRN Reason: Pain Patient Education Materials: Kidney Stones (ED), Urinary Tract Infection in Women (ED) Referrals: Jamari Roman MD [Primary Care Provider] - Additional Instructions: Toradol up to 4 times daily 4 days as needed for pain control May also take Tylenol in addition to Toradol on opposite schedule Bactrim twice daily 5 days Please return to the ED for any worsening or changing symptoms - Billing Disposition and Condition Condition: STABLE Disposition: Home
[2019-03-15 07:49] LABS: ABS Basophils 0.1 10^3/ul (0-0.2); ABS Eosinophils 0.1 10^3/ul (0-0.6); ABS Lymphocytes 2.1 10^3/ul (1.0-4.8); ABS Monocytes 0.5 10^3/ul (0-0.8); ABS Neutrophils 6.5 10^3/ul (1.5-7.7); Hematocrit 37 % (35-47); Hemoglobin 12.4 g/dL (12.0-16.0); Lymphocyte % 22.2 %; Mean Corpuscular HGB Conc 33 g/dL (31-36); Mean Corpuscular Hemoglobin 26 pg (27-31); Mean Corpuscular Volume 78 fL (80-97); Mean Platelet Volume 8.3 fL (7.4-10.4); Platelet Count 218 10^3/uL (150-450); Red Blood Count 4.78 10^6 /uL (3.70-4.87); Red Cell Distribution Width 16 % (10-15); White Blood Count 9.3 10^3/uL (3.5-10.8)
[2019-03-15 07:53] LABS: Urine Appearance Cloudy; Urine Bacteria 1+ (Absent); Urine Bilirubin Negative (Negative); Urine Blood 2+ (Negative); Urine Color Yellow; Urine Glucose Negative (Negative); Urine Ketones Negative (Negative); Urine Nitrite Negative (Negative); Urine Protein Negative (Negative); Urine Red Blood Cell 2+(6-10/hpf) (Absent); Urine Specific Gravity 1.017 (1.010-1.030); Urine Squamous Epithelial Cell Present (Absent); Urine Urobilinogen Negative (Negative); Urine White Blood Cell 3+(>20/hpf) (Absent)
[2019-03-15 08:09] LABS: ALT 14 U/L (7-52); AST 14 U/L (13-39); Albumin 3.9 g/dL (3.2-5.2); Albumin/Globulin Ratio 1.3 (1-3); Alkaline Phosphatase 73 U/L (34-104); Anion Gap 8 mmol/L (2-11); Blood Urea Nitrogen 12 mg/dL (6-24); C Reactive Protein 8.95 mg/L (<8.01); CO2 Carbon Dioxide 24 mmol/L (22-32); Calcium 8.7 mg/dL (8.6-10.3); Chloride 104 mmol/L (101-111); EGFR African American 98.6 (>60); EGFR Non-African American 81.5 (>60); Globulin 2.9 g/dL (2-4); Glucose 158 mg/dL (70-100); Potassium 3.9 mmol/L (3.5-5.0); Sodium 136 mmol/L (135-145); Total Protein 6.8 g/dL (6.4-8.9)
[2019-03-15] MEDS ORDERED: Iohexol 300* (CONTRAST) 10 ML SDV IV ONE (08:19)
[2019-03-15 10:07] LABS: HCG Pregnancy < 0.60 mIU/mL
[2019-03-15 10:37] VITALS: BP 124/62
== END 2019-03-15 10:56 | disposition home or self-care (01) ==
LOC: ED 06:40
DX: N39.0 Urinary tract infection, site not specified (principal); N13.2 Hydronephrosis with renal and ureteral calculous obstruction; Z87.442 Personal history of urinary calculi; E27.9 Disorder of adrenal gland, unspecified; R16.0 Hepatomegaly, not elsewhere classified; K76.0 Fatty (change of) liver, not elsewhere classified; D25.9 Leiomyoma of uterus, unspecified; I10 Essential (primary) hypertension; Z88.0 Allergy status to penicillin; Z88.1 Allergy status to other antibiotic agents; Z91.011 Allergy to milk products; Z91.010 Allergy to peanuts
CPT/HCPCS: 36415; 74178; 80053; 81003; 81015; 83605; 84702; 85025; 86140; 87086; 96374; 99283; J1885; Q9967

== ENCOUNTER 2019-06-12 07:30 | Emergency (ER) | payer OTHER ==
[2019-06-12 07:40] VITALS: BP 142/72
--- NOTE | 2019-06-12 08:09 | UC ---
Throat Pain/Nasal [place] HPI - HPI Summary HPI Summary: 53-year-old woman comes in with a chief complaint of 2 days of sore throat. Hurts more when she swallows. She noticed some exudates on her tonsils. For one month she's been having rhinorrhea with postnasal drip. The rhinorrhea is yellow. No recent fevers measured. No difficulty breathing or swallowing. She has been using throat lozenges which do help with the pain. No shortness of breath or wheezing. - History of Current Complaint Chief Complaint: UCRespiratory Stated Complaint: THROAT PAIN Time Seen by Provider: 06/12/19 07:46 Hx Last Menstrual Period: 05/02/19 Pain Intensity: 3 - Allergies/Home Medications Allergies/Adverse Reactions: Allergies Allergy/AdvReac Type Severity Reaction Status Date / Time cefaclor [From Ceclor] Allergy Rash Verified 06/12/19 07:40 cefuroxime [From Ceftin] Allergy Rash Verified 06/12/19 07:40 lactose Allergy GI Upset Verified 06/12/19 07:40 peanut Allergy anaph Verified 06/12/19 07:40 Penicillins Allergy Rash Verified 06/12/19 07:40 Home Medications: Home Medications Acetaminophen TAB* [Tylenol TAB*] 650 mg PO Q4H PRN 06/12/19 [History Confirmed 06/12/19] Brompheniramine/Phenylephrine [Dimetapp Cold & Allergy] 1 elx PO DAILY 06/12/19 [History Confirmed 06/12/19] Cranberry Fruit Extract [Hm Cranberry Ultra Streng] 8,400 mg PO DAILY 06/12/19 [ History Confirmed 06/12/19] Fluticasone NASAL SPRAY 50MCG* [Flonase NASAL SPRAY 50MCG*] 2 spray BOTH NARES DAILY PRN 06/12/19 [History Confirmed 06/12/19] PMH/Surg Hx/FS Hx/Imm Hx Previously Healthy: Yes - Surgical History Surgical History: Yes Surgery Procedure, Year, and Place: d&c -2005. uterine ablasion-2008. C- sections 1989 & 2001. D&C 05/12/13 - Family History Known Family History: Positive: Unknown, Hypertension - mother, Diabetes, Other - Colon Cancer - father; Breast CA - great aunt Negative: Cardiac Disease - Social History Alcohol Use: None Substance Use Type: None Smoking Status (MU): Never Smoked Tobacco Have You Smoked in the Last Year: No - Immunization History Most Recent Tetanus Shot: >10 years Review of Systems All Other Systems Reviewed And Are Negative: Yes Constitutional: Positive: Other - SEE HPI Skin: Positive: Negative Eyes: Positive: Negative ENT: Positive: Sore Throat, Nasal Discharge, Sinus Congestion Respiratory: Positive: Negative Cardiovascular: Positive: Negative Gastrointestinal: Positive: Negative Motor: Positive: Negative Neurovascular: Positive: Negative Musculoskeletal: Positive: Negative Neurological: Positive: Negative Psychological: Positive: Negative Is Patient Immunocompromised?: No Physical Exam Triage Information Reviewed: Yes Appearance: No Pain Distress, Well-Nourished, Ill-Appearing - MILD Vital Signs: Initial Vital Signs Temp 97.7 F 06/12/19 07:36 Pulse 92 06/12/19 07:36 Resp 16 06/12/19 07:36 BP 142/72 06/12/19 07:36 Pulse Ox 98 06/12/19 07:36 Vital Signs Reviewed: Yes Eye Exam: Normal Eyes: Positive: Conjunctiva Clear ENT: Positive: Pharyngeal erythema, Nasal congestion, Nasal drainage, TMs normal , Tonsillar swelling - 2+ B/L, Tonsillar exudate, Uvula midline. Negative: Muffled voice, Hoarse voice Neck: Positive: Supple Respiratory: Positive: Lungs clear, Normal breath sounds, No respiratory distress Cardiovascular: Positive: RRR Musculoskeletal: Positive: Strength Intact, ROM Intact Neurological: Positive: Alert Psychological: Positive: Age Appropriate Behavior Skin Exam: Normal Throat Pain/Nasal Course/Dx - Course Course Of Treatment: SINUSITIS SX > 10 DAYS - Differential Dx/Diagnosis Provider Diagnosis: Tonsillitis, Sinusitis Discharge ED - Sign-Out/Discharge Documenting (check all that apply): Patient Departure All imaging exams completed and their final reports reviewed: No Studies - Discharge Plan Condition: Stable Disposition: HOME Prescriptions: Azithromyxin KEZIA (NF) [Z-Kezia (Zithromax) 250 mg tabs #6] 2 tab PO .TODAY, THEN 1 DAILY #6 tab Patient Education Materials: Sinusitis (ED), Tonsillitis (ED) Referrals: Jamari Roman MD [Primary Care Provider] - Additional Instructions: FOLLOW UP WITH YOUR DOCTOR IF NOT COMPLETELY IMPROVED. GET RECHECKED SOONER IF WORSE OR ANY QUESTIONS OR CONCERNS. - Billing Disposition and Condition Condition: STABLE Disposition: Home
== END 2019-06-12 08:13 | disposition home or self-care (01) ==
LOC: UCEAST 07:30
DX: J03.90 Acute tonsillitis, unspecified (principal); J32.9 Chronic sinusitis, unspecified; Z88.1 Allergy status to other antibiotic agents; Z88.0 Allergy status to penicillin; Z91.010 Allergy to peanuts; Z91.011 Allergy to milk products
CPT/HCPCS: 87651; 99212; G0463

== ENCOUNTER 2019-10-26 07:13 | Emergency (ER) | payer OTHER ==
[2019-10-26 07:43] VITALS: BP 137/68
--- NOTE | 2019-10-26 07:44 | UC ---
Respiratory Complaint HPI - HPI Summary HPI Summary: 53 yo female with extensive recent travel history (drove to [place], one week at [place]), crowed bus situations, drive back. While there developed cough and wheezing. + runny nose + sore throat Feels some dysnea with exertion no f/c no TORRES no myalgias no n/v/d hx of childhood asthma and has had to use inhalers as an adult with viral URIs - History of Current Complaint Chief Complaint: UCRespiratory Stated Complaint: COUGH,CONGESTION,ASTHMA EXACERBATION Time Seen by Provider: 10/26/19 07:43 Hx Obtained From: Patient Hx Last Menstrual Period: 05/02/19 Onset/Duration: Gradual Onset, Lasting Days - % Timing: Constant Severity Initially: Mild Severity Currently: Moderate Pain Intensity: 0 Pain Scale Used: 0-10 Numeric Character: Cough: Nonproductive Aggravating Factors: Exertion, Deep Breaths Alleviating Factors: Nothing Associated Signs And Symptoms: Positive: Wheezing, Nasal Congestion - Allergies/Home Medications Allergies/Adverse Reactions: Allergies Allergy/AdvReac Type Severity Reaction Status Date / Time cefaclor [From Ceclor] Allergy Rash Verified 10/26/19 07:37 cefuroxime [From Ceftin] Allergy Rash Verified 10/26/19 07:37 lactose Allergy GI Upset Verified 10/26/19 07:37 peanut Allergy anaph Verified 10/26/19 07:37 Penicillins Allergy Rash Verified 10/26/19 07:37 Home Medications: Home Medications Levothyroxine TAB* [Synthroid 125 MCG TAB*] 125 mcg PO DAILY 08/12/12 [History Confirmed 10/26/19] Sertraline* [Zoloft*] 150 mg PO DAILY 08/12/12 [History Confirmed 10/26/19] Lisinopril TAB* [Prinivil TAB*] 20 mg PO DAILY 11/08/17 [History Confirmed 10/25] Acetaminophen TAB* [Tylenol TAB*] 650 mg PO Q4H PRN 06/12/19 [History Confirmed 10/26/19] Benzonatate CAP* [Tessalon CAP*] 100 - 200 mg PO TID PRN #28 cap 10/26/19 [Rx] PMH/Surg Hx/FS Hx/Imm Hx Previously Healthy: Yes Cardiovascular History: Hypertension Respiratory History: Asthma, Bronchitis GI/ History: Gastroesophageal Reflux - Surgical History Surgical History: Yes Surgery Procedure, Year, and Place: d&c -2005. uterine ablasion-2008. C- sections 1989 & 2001. D&C 05/12/13 - Family History Known Family History: Positive: Unknown, Hypertension - mother, Diabetes, Other - Colon Cancer - father; Breast CA - great aunt Negative: Cardiac Disease - Social History Alcohol Use: None Substance Use Type: None Smoking Status (MU): Never Smoked Tobacco Have You Smoked in the Last Year: No - Immunization History Most Recent Tetanus Shot: >10 years Review of Systems All Other Systems Reviewed And Are Negative: Yes Constitutional: Positive: Negative Skin: Positive: Negative Eyes: Positive: Negative ENT: Positive: Sore Throat, Nasal Discharge, Sinus Congestion Respiratory: Positive: Shortness Of Breath, Cough, Other - wheezing Cardiovascular: Positive: Negative Gastrointestinal: Positive: Negative Genitourinary: Positive: Negative Motor: Positive: Negative Neurovascular: Positive: Negative Musculoskeletal: Positive: Negative Neurological/Mental Status: Positive: Negative Psychological: Positive: Negative Physical Exam Triage Information Reviewed: Yes Appearance: Well-Appearing, No Pain Distress, Well-Nourished Vital Signs: Initial Vital Signs Temp 98.5 F 10/26/19 07:39 Pulse 92 10/26/19 07:39 Resp 24 10/26/19 07:39 BP 137/68 10/26/19 07:39 Pulse Ox 95 10/26/19 07:39 Vital Signs Reviewed: Yes Eyes: Positive: Conjunctiva Clear ENT: Positive: Hearing grossly normal, Nasal congestion, Nasal drainage Dental Exam: Normal Neck: Positive: Supple, Nontender, No Lymphadenopathy Respiratory: Positive: Normal breath sounds, No respiratory distress, No accessory muscle use, Wheezing - with forced expiration only Cardiovascular: Positive: RRR, No Murmur Musculoskeletal: Positive: ROM Intact, No Edema Neurological: Positive: Alert Psychological Exam: Normal Skin Exam: Normal Diagnostics - Laboratory Lab Results: influenza (-) strep (-) RSV (-) Respiratory Course/Dx - Differential Dx/Diagnosis Provider Diagnosis: Viral URI with cough Discharge ED - Sign-Out/Discharge Documenting (check all that apply): Patient Departure All imaging exams completed and their final reports reviewed: No Studies - Discharge Plan Condition: Stable Disposition: HOME Patient Education Materials: Upper Respiratory Infection (ED), How to Use a Metered-Dose Inhaler and a Spacer (ED) Referrals: Carlos Enrique Harp MD [Primary Care Provider] - If Needed Additional Instructions: Rest Fluids Inhaler as directed tylenol or advil if needed your flu, strep, and RSV tests were negative due to your worrisome travel history we will test you for the COVID-19 virus SEE In-Home ISOLATION instructions act as though you have it until you hear from the health department otherwise - Billing Disposition and Condition Condition: STABLE Disposition: Home
[2019-10-26] MEDS ORDERED: Albuterol HFA INHALER* 8 gm MDI INH ONE (07:55)
[2019-10-26 08:17] LABS: Influenza A Molecular Negative (Negative); Influenza B Molecular Negative (Negative)
== END 2019-10-26 09:06 | disposition home or self-care (01) ==
LOC: UCEAST 07:13
DX: J06.9 Acute upper respiratory infection, unspecified (principal); R05 Cough; I10 Essential (primary) hypertension; J45.909 Unspecified asthma, uncomplicated; Z79.899 Other long term (current) drug therapy; Z88.1 Allergy status to other antibiotic agents; Z88.0 Allergy status to penicillin; Z91.010 Allergy to peanuts; Z91.011 Allergy to milk products
CPT/HCPCS: 87651; 99213; A9270-GY; G0463; J7512; U0002

== ENCOUNTER 2022-08-05 22:49 | Observation (INO) ==
[2022-08-06 00:16] LABS: Hematocrit 31 % (35-47); Hemoglobin 10.4 g/dL (12.0-16.0); Mean Corpuscular HGB Conc 33 g/dL (31-36); Mean Corpuscular Hemoglobin 24 pg (27-31); Mean Corpuscular Volume 73 fL (80-97); Mean Platelet Volume 7.4 fL (7.4-10.4); Platelet Count 386 10^3/uL (150-450); Red Blood Count 4.32 10^6 /uL (3.70-4.87); Red Cell Distribution Width 16 % (10-15); White Blood Count 15.8 10^3/uL (3.5-10.8)
[2022-08-06 00:17] LABS: Urine Appearance Clear; Urine Color Yellow
[2022-08-06 00:21] LABS: INR 1.23 (0.88-1.18)
[2022-08-06 00:34] LABS: Urine Bilirubin Negative (Negative); Urine Glucose Negative (Negative); Urine Ketones Negative (Negative)
[2022-08-06 00:36] LABS: Urine Blood Negative (Negative); Urine Nitrite Negative (Negative); Urine Protein Negative (Negative); Urine Specific Gravity 1.023 (1.002-1.030); Urine Urobilinogen 0.2 (Negative) (Negative)
[2022-08-06 00:44] LABS: ABS Basophils 0.1 10^3/ul (0-0.2); ABS Eosinophils 0.2 10^3/ul (0-0.6); ABS Lymphocytes 1.8 10^3/ul (1.0-4.8); ABS Neutrophils 12.7 10^3/ul (1.5-7.7); Eosinophil % 1.4 %; Lymphocyte % 11.4 %
[2022-08-06 00:45] LABS: Anisocytosis 1+; Microcytosis 2+
[2022-08-06 00:49] LABS: Albumin 3.5 g/dL (3.2-5.2); C Reactive Protein 183.95 mg/L (<8.01); Calcium 8.8 mg/dL (8.6-10.3); Globulin 3.4 g/dL (2-4); Potassium 4.7 mmol/L (3.5-5.0); Total Bilirubin 0.2 mg/dL (0.2-1.0); Total Protein 6.9 g/dL (6.4-8.9)
[2022-08-06] MEDS ORDERED: Lactated Ringers 1000 ml BAG 1,000 ML IV ONE (01:50)
[2022-08-06] MEDS ORDERED: Iohexol 350 (CONTRAST) 500 ML MDV IV ONE (02:58)
[2022-08-06] MEDS ORDERED: Iodixanol (CONTRAST) 320 MG/ML 100 ML SDV IV ONE (03:54)
[2022-08-06] MEDS ORDERED: Meropenem 1 GM PREMIX(*) 1 GM/50 ML BAG IV ONE (08:15)
[2022-08-06] MEDS ORDERED: Albuterol HFA INHALER 8 gm MDI INH PRN (14:13)
[2022-08-06] MEDS ORDERED: Gadoteridol (CONTRAST) 279.3 MG/ML 10 ML IV ONE (16:45)
[2022-08-06 18:54] VITALS: BP 129/77
== END 2022-08-06 18:55 | disposition home or self-care (01) ==
LOC: EDHOLD 22:49 → ED 22:49 → EDHOLD 08-06 18:53
PROVIDERS: ADMIT Internal Medicine; ATTEND Internal Medicine